=== PATIENT | female | born 1950 | race Caucasian/White ===

== ENCOUNTER → 2017-02-18 | Outpatient (CLI) | payer BC ==
[~2017-02-18] MED LIST: AGM875 PO; CLB100 PO; SYNTHROID
[2017-02-18 17:47] LABS: BASO % 0.5 %; BASO ABS # 0.02 K/uL (0-0.2); COMPLETE YES; EOS % 6.1 %; HEMATOCRIT 42.3 % (37-47); IG% 0.2 %; LYMPH % 41.1 %; LYMPH ABS # 1.75 K/uL (1.2-3.4); MEAN CELL VOLUME 94.8 fL (80-100); MEAN CORPUSCULAR HEMOGLOBIN 31.8 pg (25-34); MEAN CORPUSCULAR HGB CONC 33.6 g/dl (32-36); MEAN PLATELET VOLUME 10.3 fL (7.4-10.4); MONO % 9.4 %; NEUT % 42.7 %; PLATELET COUNT 208 K/uL (130-400); RED BLOOD COUNT 4.46 M/uL (4.2-5.4); WHITE BLOOD COUNT 4.26 K/uL (4.8-10.8)
[2017-02-18 17:56] LABS: ALT/SGPT 29 U/L (12-78); BLOOD UREA NITROGEN 18 mg/dl (7-18); CALCIUM 9.2 mg/dl (8.5-10.1); CARBON DIOXIDE 28 mmol/L (21-32); CHLORIDE 104 mmol/L (98-107); CREATININE 0.75 mg/dl (0.60-1.20); GLUCOSE 85 mg/dl (70-99); POTASSIUM 4.4 mmol/L (3.5-5.1); SODIUM 140 mmol/L (136-145)
[2017-02-18 18:05] LABS: ALB/GLOB RATIO 1.3 (0.9-2); ALKALINE PHOSPHATASE 60 U/L (45-117); AST/SGOT 23 U/L (15-37); TOTAL IRON BINDING CAPACITY 305 mcg/dl (250-450)
[2017-02-18 18:26] LABS: LYME DISEASE AB IGM NEG (NEG)
[2017-02-18 18:27] LABS: LYME DISEASE AB IGG NEG (NEG)
[2017-02-19 07:20] LABS: ESTIMATED AVERAGE GLUCOSE 111 mg/dl; HA1C FLAG Normal (Normal)
--- NOTE | 2017-03-03 10:51 | CODING QUERY MEDICAL NECESSITY ---
CQSUPPORTING DIAGNOSIS NEEDED A supporting diagnosis is required for the test/procedure performed on this patient in order for us to be reimbursed by the patient's insurance. Please provide a supporting diagnosis for the following test/procedure listed below next to the test name along with your signature. *If there is no additional diagnosis for this patient that would support the following test/procedure please document that below next to the test/procedure. Test(s)/Procedure(s) that require a supporting diagnosis: DOS 02/18/17 GLYCATED HEMOGLOBIN TEST VITAMIN D TEST SERUM IRON STUDY Provider Signature: Date: Thank you Ciarra Lewis Health Information Management Once completed, please kindly fax back to [phone] For questions please call [phone]
== END | disposition home or self-care (01) ==
LOC: C.LABPVFM 13:39
PROVIDERS: ATTEND Nurse Practitioner
DX: R53.83 Other fatigue (principal)

== ENCOUNTER → 2017-04-22 | Outpatient (CLI) | payer BC ==
--- NOTE | 2017-04-22 17:16 | MAMMOGRAPHY REPORT ---
BILATERAL DIGITAL SCREENING MAMMOGRAM TOMOSYNTHESIS WITH CAD: 04/22/2017 CLINICAL HISTORY: Routine screening. Patient has no complaints. TECHNIQUE: Breast tomosynthesis in addition to standard 2D mammography was performed. Current study was also evaluated with a Computer Aided Detection (CAD) system. COMPARISON: Comparison is made to exams dated: 04/21/2016 mammogram, 04/17/2015 mammogram, 04/13/2014 jennie mogram, 04/21/2013 mammogram, 03/31/2013 mammogram, and 03/30/2012 mammogram - [facility]. BREAST COMPOSITION: The tissue of both breasts is heterogeneously dense, which may obscure small mas ses. FINDINGS: A linear scar marker overlies the right upper outer quadrant. There is stable focal asymme try in the upper outer middle and posterior right breast. Stable bilateral benign-appearing calcific ations. No new suspicious mass, architectural distortion or cluster of microcalcifications is seen. IMPRESSION: ACR BI-RADS CATEGORY 1: NEGATIVE There is no mammographic evidence of malignancy. A 1 year screening mammogram is recommended. The pa tient will receive written notification of the results. Approximately 10% of breast cancers are not detected with mammography. A negative mammographic report should not delay biopsy if a clinically suggestive mass is present. Khushboo Correia M.D. ay/:04/22/2017 15:38:52 Retail Advertising Sales Manager: Yamila Miller, [facility] letter sent: Normal 1/2 BI-RADS Code: ACR BI-RADS Category 1: Negative
== END | disposition home or self-care (01) ==
LOC: C.MAMM 12:45
PROVIDERS: ATTEND Nurse Practitioner
DX: Z12.31 Encounter for screening mammogram for malignant neoplasm of breast (principal)

== ENCOUNTER 2017-11-07 12:54 | Emergency (ER) | payer BC ==
[~2017-11-07] VITALS: Ht 170.2 cm; Wt 50.4 kg
[2017-11-07 13:02] VITALS: TEMP 37.4; Ht 170.2 cm; Wt 50.4 kg
[2017-11-07] MEDS ORDERED: ALBUT/IPRATROP 3MG/0.5MG NEB 3 ML VIAL INH STA (13:34)
--- NOTE | 2017-11-07 13:35 | EMERGENCY ROOM VISIT NOTE ---
History Report prepared by Gila: Yeni Boyd Under the Supervision of: Dr. Troy Navarro M.D. First contact with patient: 13:17 Chief Complaint: WEAKNESS Stated Complaint: SICK FOR MONTHS- WEAK, INFECTION Nursing Triage Summary: pt reports started months ago sick from people at work with flu like sx placed on meds and made sx worse has been intermittently on antibiotics since . pt rambling on about past 3 months unable to tell me what is wrong today. has cough and does not want meds dr put her on History of Present Illness The patient is a 67 year old female who presents to the Emergency Room with complaints of worsening weakness for the past 3 months. She reports that she developed flu symptoms several months ago, and saw Dr. Menendez at [facility], who prescribed her Levaquin. She states the medications made her feel "weak and run down". She told [facility] medical staff the medicine was making her "sicker", but she had blood work that came back unremarkable. The patient was then placed on steroids and began to improve. She developed flu symptoms again, and was placed on the same medication by Dr. Menendez again. The patient states she last took one of the pills this past Thursday, 4 days HERBICIDE SPRAYER, and has been "unable to get out of bed since then". She admits to a cough and is a former smoker, but states she quit 35 years ago. She denies any abdominal pain. She states she has been drinking lots of water and eating normally. Source of History: patient Onset: 3 months HERBICIDE SPRAYER Position: other (global) Timing: worsening Modifying Factors (Worsening): other (Levaquin) Associated Symptoms: + cough, No abdominal pain Review of Systems See HPI for pertinent positives & negatives. A total of 10 systems reviewed and were otherwise negative. Past Medical & Surgical Medical Problems: (1) Hypothyroidism Social History Smoking Status: Current Every Day Smoker Alcohol Use: none Drug Use: none Marital Status: Housing Status: lives with family Occupation Status: employed Current/Historical Medications Scheduled Ascorbic Acid (Ascorbic Acid), 1 TAB PO DAILY Azithromycin (Zithromax Z-Luke), 1 PKT PO UD Calcium Carbonate (Calcium 600), 1 TAB PO DAILY Celecoxib (Celebrex), 1 CAP PO BID Cholecalciferol (D-5000), 1 TAB PO DAILY Fluticasone Furoate-Vilanterol (Breo Ellipta), 1 PUFF INH HS Levothyroxine Sodium (Levothyroxine Sodium), 1 TAB PO DAILY Potassium Gluconate (K-99), 1 CAP PO DAILY Prednisone (Prednisone), 0 PO DAILY Allergies Uncoded Allergies: ANESTHETIC (Allergy, Unknown, 10/22/03) HORSE SERUM (Allergy, Unknown, 10/22/03) Physical Exam Vital Signs Date Time Temp Pulse Resp B/P (MAP) Pulse Ox O2 Delivery O2 Flow Rate FiO2 11/07/17 14:53 93 18 131/79 96 Room Air 11/07/17 14:26 88 18 126/73 97 Room Air 11/07/17 13:02 37.4 110 18 133/85 96 Room Air Physical Exam GENERAL: Patient is well appearing, slightly anxious and in no acute distress. EYES: No scleral icterus, unremarkable pupils. ENT: Mucous membranes moist, no nasal congestion. NECK: No masses appreciated, no meningismus, trachea is midline. RESPIRATORY: No dyspnea. Course lung sounds with wheezing throughout. No rhonchi. CARDIOVASCULAR: Mildly tachycardic heart rate, regular rhythm. No murmurs, rubs , gallops appreciated. GASTROINTESTINAL: Abdomen soft, nontender, no peritonitis. Bowel sounds positive. No masses appreciated. BACK: No midline tenderness, no CVA tenderness EXTREMITIES: Normal motion all extremities, no cyanosis, no edema. NEUROLOGIC: Alert and oriented, no acute motor or sensory deficits, no focal weakness, cranial nerves grossly intact. SKIN: No rash, no jaundice, no diaphoresis. Medical Decision & Procedures ER Provider Diagnostic Interpretation: Radiology results and stated below per my review and radiologist interpretation: TWO VIEW CHEST CLINICAL HISTORY: Cough and wheezing. FINDINGS: PA and lateral chest radiographs are compared to study dated 05/06/2011. The cardiomediastinal silhouette is unremarkable. There is atherosclerotic calcification of the thoracic aorta. Emphysematous change is noted and there is chronic interstitial thickening. No airspace consolidation or pleural effusion is identified. There is no pneumothorax. The skeletal structures are osteopenic. The bony thorax appears intact. Degenerative change and scoliosis are noted in the thoracic spine. IMPRESSION: Emphysematous change with no active disease in the chest. Electronically signed by: Loyd Dallas M.D. 11/07/2017 2:23 PM Laboratory Results 11/07/17 13:30 Red Blood Count 4.44, Mean Corpuscular Volume 93.5, Mean Corpuscular Hemoglobin 32.2, Mean Corpuscular Hemoglobin Concent 34.5, Mean Platelet Volume 9.9, Neutrophils (%) (Auto) 66.3, Lymphocytes (%) (Auto) 16.0, Monocytes (%) (Auto) 16.0, Eosinophils (%) (Auto) 1.2, Basophils (%) (Auto) 0.5, Neutrophils # (Auto ) 2.68, Lymphocytes # (Auto) 0.65, Monocytes # (Auto) 0.65, Eosinophils # (Auto ) 0.05, Basophils # (Auto) 0.02 11/07/17 13:30 Test 11/07/17 13:30 White Blood Count 4.05 K/uL (4.8-10.8) Red Blood Count 4.44 M/uL (4.2-5.4) Hemoglobin 14.3 g/dL (12.0-16.0) Hematocrit 41.5 % (37-47) Mean Corpuscular Volume 93.5 fL (80-100) Mean Corpuscular Hemoglobin 32.2 pg (25-34) Mean Corpuscular Hemoglobin Concent 34.5 g/dl (32-36) Platelet Count 150 K/uL (130-400) Mean Platelet Volume 9.9 fL (7.4-10.4) Neutrophils (%) (Auto) 66.3 % Lymphocytes (%) (Auto) 16.0 % Monocytes (%) (Auto) 16.0 % Eosinophils (%) (Auto) 1.2 % Basophils (%) (Auto) 0.5 % Neutrophils # (Auto) 2.68 K/uL (1.4-6.5) Lymphocytes # (Auto) 0.65 K/uL (1.2-3.4) Monocytes # (Auto) 0.65 K/uL (0.11-0.59) Eosinophils # (Auto) 0.05 K/uL (0-0.5) Basophils # (Auto) 0.02 K/uL (0-0.2) RDW Standard Deviation 47.0 fL (36.4-46.3) RDW Coefficient of Variation 13.6 % (11.5-14.5) Immature Granulocyte % (Auto) 0.0 % Immature Granulocyte # (Auto) 0.00 K/uL (0.00-0.02) Anion Gap 4.0 mmol/L (3-11) Est Creatinine Clear Calc Drug Dose 61.1 ml/min Estimated GFR () 100.2 Estimated GFR (Non- 86.4 BUN/Creatinine Ratio 17.6 (10-20) Calcium Level 8.6 mg/dl (8.5-10.1) Total Bilirubin 0.3 mg/dl (0.2-1) Aspartate Amino Transf (AST/SGOT) 21 U/L (15-37) Alanine Aminotransferase (ALT/SGPT) 20 U/L (12-78) Alkaline Phosphatase 64 U/L (45-117) Total Protein 6.8 gm/dl (6.4-8.2) Albumin 3.7 gm/dl (3.4-5.0) Globulin 3.1 gm/dl (2.5-4.0) Albumin/Globulin Ratio 1.2 (0.9-2) Laboratory results as reviewed by me. Medications Administered Medications (Trade) Dose Ordered Sig/Agatha Route Start Time Stop Time Status Last Admin Dose Admin Albuterol/ Ipratropium (Duoneb) 3 ml NOW STAT INH 11/07/17 13:34 11/07/17 13:35 DC 11/07/17 13:48 3 ML Albuterol (Ventolin Hfa Inhaler) 2 puffs NOW ONCE INH 11/07/17 14:45 11/07/17 14:46 DC 11/07/17 14:51 2 PUFFS Prednisone (PredniSONE TAB) 60 mg NOW STAT PO 11/07/17 14:43 11/07/17 14:45 DC 11/07/17 14:51 60 MG Azithromycin (Zithromax Tab) 500 mg NOW ONCE PO 11/07/17 14:45 11/07/17 14:46 DC 11/07/17 14:51 500 MG ECG Per My Interpretation Indication: SOB/dyspnea Rate (beats per minute): 94 Rhythm: normal sinus Findings: no acute ischemic change, no ectopy Change: EKG: Electrocardiogram per my interpretation. ED Course 1318: The patient was evaluated in room B5. A complete history and physical exam was performed. 1334: DuoNeb 3 ml INH. 1443: Prednisone 60 mg PO. 1443: I reevaluated the patient. She is feeling well and would like to go home. She will follow up with Pulmonology. She has had complete resolution of symptoms. She will use an inhaler and take Prednisone. I advised smoking cessation any my concerns for her emphysema. She verbalized complete understanding and agreement. 1445: Azithromycin 500 mg PO, Albuterol 2 puffs INH. Medical Decision Differential: Infectious, Reactive Airway Disease, Pneumonia, Pneumothorax, COPD , CHF, ACS, Pulmonary Embolism, MSK, GI, Dissection, amongst other etiologies entertained. 67 yr old female arrives for evaluation of cough, fatigue and shortness of breath. 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 Labs unremarkable. No symptoms of ACS and symptoms not consistent with PE. She has emphysema noted on CXR consistent with her exam. Wheezing resolved with neb. I feel this is bronchitis and should improve with abx/steroids/inhaler. Prolonged steroid taper as she has been dealing with this for some time. Already has been on Doxy/Levaquin with poor result thus will switch to Zpack. She feels comfortable going home and agrees to follow up with PCP. Suggest Pulm evaluation as outpatient. Medication Reconcilliation Current Medication List: was personally reviewed by me Blood Pressure Screening Patient's blood pressure: Normal blood pressure Blood pressure disposition: Did not require urgent referral Impression Primary Impression: Bronchitis Additional Impressions: Fatigue Emphysema lung Scribe Attestation The scribe's documentation has been prepared under my direction and personally reviewed by me in its entirety. I confirm that the note above accurately reflects all work, treatment, procedures, and medical decision making performed by me. Departure Information Dispostion Home / Self-Care Prescriptions Azithromycin (ZITHROMAX Z-LUKE) 250 Mg Tab 1 PKT PO UD, #1 PKT Patient requests no medications made by DR MENENDEZ'S Prov: Troy Navarro M.D. 11/07/17 Prednisone (Prednisone) 20 Mg Tab 0 PO DAILY, #17 TAB 3 TABS DAILY FOR 2 DAYS, THEN 2 TABS DAILY FOR 3 DAYS, THEN 1 TAB DAILY FOR 3 DAYS, THEN 1/2 TAB DAILY FOR 3 DAYS. Prov: Troy Navarro M.D. 11/07/17 Referrals No Doctor, Assigned (PCP) Patient Instructions My [facility] Additional Instructions Rest, keep well hydrated and avoid over exertion over the next few days. Return if worsening breathing, fevers, vomiting, chest pain or other concerns. Avoid NSAID (motrin, ibuprofen, Celebrex, etc) Use while on Prednisone. We are always here to help. Please discuss with your Pharmacy about where medications are from. It is advised you follow up with Consulting Sales Executive for further evaluation of your Emphysema. It is highly advised you stop smoking now. Problem Qualifiers
[2017-11-07] MEDS ORDERED: CLB100 PO (13:45)
[2017-11-07] MEDS ORDERED: POTACAP PO (13:45)
[2017-11-07] MEDS ORDERED: ASCO100061 PO (13:45)
[2017-11-07] MEDS ORDERED: CALC600T PO (13:45)
[2017-11-07] MEDS ORDERED: LEVO75TA5 PO (13:45)
[2017-11-07] MEDS ORDERED: LEVO1TAB35 PO (13:45)
[2017-11-07] MEDS ORDERED: FLUT1INH INH (13:45)
[2017-11-07] MEDS ORDERED: CHOLTAB11 PO (13:45)
[2017-11-07 14:06] LABS: BASO % 0.5 %; BASO ABS # 0.02 K/uL (0-0.2); EOS % 1.2 %; EOS ABS # 0.05 K/uL (0-0.5); HEMATOCRIT 41.5 % (37-47); HEMOGLOBIN 14.3 g/dL (12.0-16.0); LYMPH ABS # 0.65 K/uL (1.2-3.4); MEAN CELL VOLUME 93.5 fL (80-100); MEAN CORPUSCULAR HEMOGLOBIN 32.2 pg (25-34); MEAN CORPUSCULAR HGB CONC 34.5 g/dl (32-36); MEAN PLATELET VOLUME 9.9 fL (7.4-10.4); MONO ABS # 0.65 K/uL (0.11-0.59); NEUT % 66.3 %; NEUT ABS # 2.68 K/uL (1.4-6.5); PLATELET COUNT 150 K/uL (130-400); RED CELL DISTRIBUTION WIDTH CV 13.6 % (11.5-14.5); WHITE BLOOD COUNT 4.05 K/uL (4.8-10.8)
[2017-11-07 14:19] LABS: ALBUMIN 3.7 gm/dl (3.4-5.0); CALCIUM 8.6 mg/dl (8.5-10.1); CREATININE 0.73 mg/dl (0.60-1.20); POTASSIUM 3.8 mmol/L (3.5-5.1)
[2017-11-07 14:22] LABS: TOTAL PROTEIN 6.8 gm/dl (6.4-8.2)
--- NOTE | 2017-11-07 14:24 | DIAGNOSTIC IMAGING REPORT ---
TWO VIEW CHEST CLINICAL HISTORY: Cough and wheezing. FINDINGS: PA and lateral chest radiographs are compared to study dated 05/06/2011. The cardiomediastinal silhouette is unremarkable. There is atherosclerotic calcification of the thoracic aorta. Emphysematous change is noted and there is chronic interstitial thickening. No airspace consolidation or pleural effusion is identified. There is no pneumothorax. The skeletal structures are osteopenic. The bony thorax appears intact. Degenerative change and scoliosis are noted in the thoracic spine. IMPRESSION: Emphysematous change with no active disease in the chest. Electronically signed by: Loyd Dallas M.D. 11/07/2017 2:23 PM Dictated Date/Time: 11/07/2017 2:21 PM
[2017-11-07] MEDS ORDERED: ALBUTEROL HFA 8 GM INHALER INH ONE (14:45)
[2017-11-07] MEDS ORDERED: AZITHROMYCIN 250 MG TAB PO ONE (14:45)
[2017-11-07] MEDS ORDERED: AZITTAB PO ×2 (14:48→14:49)
[2017-11-07] MEDS ORDERED: PRED20TA PO (14:48)
[2017-11-07 14:53] VITALS: BP 131/79; PULSE 93; O2SAT 96
== END 2017-11-07 15:02 | disposition home or self-care (01) ==
LOC: C.EDB 12:55
DX: J40 Bronchitis, not specified as acute or chronic (principal); R53.83 Other fatigue; J43.9 Emphysema, unspecified; E03.9 Hypothyroidism, unspecified; Z79.899 Other long term (current) drug therapy; Z88.4 Allergy status to anesthetic agent; Z88.7 Allergy status to serum and vaccine; F17.200 Nicotine dependence, unspecified, uncomplicated

== ENCOUNTER 2017-11-09 15:02 | Emergency (ER) | payer BC ==
[~2017-11-09] VITALS: Ht 167.6 cm; Wt 50.3 kg
[~2017-11-09 15:02] MED LIST changes: -AGM875 PO; +ASCO100061 PO; +AZITTAB PO; +CALC600T PO; +CHOLTAB11 PO; +FLUT1INH INH; +LEVO75TA5 PO; +POTACAP PO; +PRED20TA PO; -SYNTHROID
[2017-11-09 15:19] VITALS: BP 121/81; Ht 167.6 cm; Wt 50.3 kg
[2017-11-09] MEDS ORDERED: SODIUM CHLORIDE 0.9% 500ML 500 ML IV STA ×2 (15:39→16:56)
[2017-11-09] MEDS ORDERED: ALBUT/IPRATROP 3MG/0.5MG NEB 3 ML VIAL INH STA (15:39)
--- NOTE | 2017-11-09 15:56 | DIAGNOSTIC IMAGING REPORT ---
CHEST ONE VIEW PORTABLE CLINICAL HISTORY: Cough. COMPARISON STUDY: Chest radiograph November 07, 2017. FINDINGS: No pneumothorax or pleural effusion is noted. There is no consolidation or evidence for pulmonary edema. Cardiac size is normal. Mediastinal contours are normal. IMPRESSION: No acute cardiopulmonary findings. Electronically signed by: Joe Chatterjee M.D. 11/09/2017 3:55 PM Dictated Date/Time: 11/09/2017 3:54 PM
[2017-11-09 16:31] LABS: HEMATOCRIT 41.6 % (37-47); HEMOGLOBIN 14.4 g/dL (12.0-16.0); IG# 0.01 K/uL (0.00-0.02); LYMPH ABS # 0.37 K/uL (1.2-3.4); MEAN CELL VOLUME 92.9 fL (80-100); MEAN CORPUSCULAR HEMOGLOBIN 32.1 pg (25-34); MEAN CORPUSCULAR HGB CONC 34.6 g/dl (32-36); MEAN PLATELET VOLUME 10.2 fL (7.4-10.4); MONO % 5.4 %; MONO ABS # 0.18 K/uL (0.11-0.59); NEUT % 83.3 %; PLATELET COUNT 142 K/uL (130-400); RED CELL DISTRIBUTION WIDTH CV 13.6 % (11.5-14.5); RED CELL DISTRIBUTION WIDTH SD 46.6 fL (36.4-46.3); WHITE BLOOD COUNT 3.36 K/uL (4.8-10.8)
[2017-11-09] MEDS ORDERED: AZIT-60 PO (16:39)
[2017-11-09 16:41] LABS: ALBUMIN 3.8 gm/dl (3.4-5.0); BLOOD UREA NITROGEN 14 mg/dl (7-18); CALCIUM 8.6 mg/dl (8.5-10.1); CARBON DIOXIDE 26 mmol/L (21-32); GLUCOSE 109 mg/dl (70-99); POTASSIUM 3.9 mmol/L (3.5-5.1); PTT PATIENT 26.7 SECONDS (21.0-31.0); SODIUM 136 mmol/L (136-145)
[2017-11-09] MEDS ORDERED: AZITTAB PO (16:41)
[2017-11-09 16:48] LABS: INFLUENZA B ANTIGEN POS for Influ B (NEG)
[2017-11-09 16:58] LABS: ALKALINE PHOSPHATASE 65 U/L (45-117); ALT/SGPT 24 U/L (12-78); AST/SGOT 25 U/L (15-37); CREATININE 0.78 mg/dl (0.60-1.20); TOTAL PROTEIN 7.3 gm/dl (6.4-8.2)
[2017-11-09 17:31] VITALS: PULSE 89; O2SAT 98
--- NOTE | 2017-11-09 17:52 | EMERGENCY ROOM VISIT NOTE ---
History First contact with patient: 15:24 Chief Complaint: FLU LIKE SX Stated Complaint: SORE THROAT, EAR AND SINUS PAIN, WEAK, DIARRHEA History of Present Illness The patient is a 67 year old female who presents to the Emergency Room via private vehicle with complaints of "sore throat, ear and sinus pain, weak, diarrhea". The patient states that she is here today because she now has worsening sore throat, ear and sinus pain, feels weak and has diarrhea. She states this all started back in August when she had the flu. She was sick for a few weeks. She has intermittently gone to [facility]. She received antibiotics. She notes that she felt worse. She did not get any better. She felt foggy. She states that sometimes she would feel better and then she would become weak and tired. She had inability to function. She states that she had blood work performed and it was "all right". She states that she feels as though she has a head cold as well as in the lungs. She was on steroids and antibiotics for period of time that seemed to work but now she is ill again. She states that 3 weeks ago she began with cough, yellow mucus production and was seen here a few days ago and given azithromycin. She states that her throat is now sore and she feels weak. She has diarrhea which began today. Review of Systems A complete 10-point Review of Systems was discussed with the patient, with pertinent positives and negatives listed in the History of Present Illness. All remaining Review of Systems questions can be considered negative unless otherwise specified. Past Medical/Surgical History Medical Problems: (1) Hypothyroidism Social History Smoking Status: Current Every Day Smoker Alcohol Use: none Drug Use: none Marital Status: Housing Status: lives with family Occupation Status: employed Current/Historical Medications Scheduled Ascorbic Acid (Ascorbic Acid), 1,000 MG PO DAILY Azithromycin (Zithromax Z-Luke), 1 PKT PO UD Azithromycin (Zithromax Z-Luke), 1 PKT PO UD Benzonatate (Tessalon Perles), 100 MG PO TID Calcium Carbonate (Calcium 600), 600 MG PO DAILY Celecoxib (Celebrex), 100 MG PO BID Cholecalciferol (D-5000), 5,000 UNITS PO DAILY Fluticasone Furoate-Vilanterol (Breo Ellipta), 1 PUFF INH HS Levothyroxine Sodium (Levothyroxine Sodium), 75 MCG PO DAILY Potassium Gluconate (K-99), 1 CAP PO DAILY Prednisone (Prednisone), 0 PO DAILY Physical Exam Vital Signs Date Time Temp Pulse Resp B/P (MAP) Pulse Ox O2 Delivery O2 Flow Rate FiO2 11/09/17 18:00 37.2 11/09/17 17:31 89 13 98 Room Air 11/09/17 16:31 88 11/09/17 15:19 37.1 93 20 121/81 95 Room Air Physical Exam VITAL SIGNS - Vital signs and nursing notes were reviewed. Stable. GENERAL -67-year-old female appearing her stated age who is in no acute distress. Communicates well with provider and answers questions appropriately. SKIN - Without rashes. No meningeal petechial rash. HEAD - NC/AT. EYES - PERRL with EOMI bilaterally. Sclera anicteric. EARS - No deformities of external structures noted on gross examination bilaterally. External auditory canals without discharge or otorrhea. Tympanic membranes pearly capellan without retraction or bulging. No fluid or purulent material visualized behind the TM. Handle of malleus, umbo, cone of light, pars tensa/flaccid all easily visualized. NOSE - Midline and without cyanosis. No epistaxis or purulent drainage noted. MOUTH/OROPHARYNX - Without perioral cyanosis. NECK - Neck with FROM. Supple to palpation. Minimal anterior cervical lymphadenopathy noted. No nuchal rigidity. LUNGS - Chest wall symmetric without accessory muscle use, intercostals retractions, or central cyanosis. Normal vesicular breath sounds CTA B/L. No wheezes, rales, or rhonchi appreciated. CARDIAC - RRR with S1/S2. No murmur, rubs, or gallops appreciated. EXTREMITIES - No clubbing or peripheral cyanosis. No pretibial edema present. +5 /5 strength noted in UE/LE bilaterally. NEUROLOGIC - Cranial nerves II through XII grossly intact. Sensory intact to light touch throughout. PSYCH - A&O, and cooperates fully with examiner. Pt is very pleasant and interacts well with examiner. Medical Decision & Procedures ER Provider Diagnostic Interpretation: CHEST ONE VIEW PORTABLE CLINICAL HISTORY: Cough. COMPARISON STUDY: Chest radiograph November 07, 2017. FINDINGS: No pneumothorax or pleural effusion is noted. There is no consolidation or evidence for pulmonary edema. Cardiac size is normal. Mediastinal contours are normal. IMPRESSION: No acute cardiopulmonary findings. Electronically signed by: Joe Chatterjee M.D. 11/09/2017 3:55 PM Dictated Date/Time: 11/09/2017 3:54 PM Laboratory Results 11/09/17 15:40 Red Blood Count 4.48, Mean Corpuscular Volume 92.9, Mean Corpuscular Hemoglobin 32.1, Mean Corpuscular Hemoglobin Concent 34.6, Mean Platelet Volume 10.2, Neutrophils (%) (Auto) 83.3, Lymphocytes (%) (Auto) 11.0, Monocytes (%) (Auto) 5.4, Eosinophils (%) (Auto) 0.0, Basophils (%) (Auto) 0.0, Neutrophils # (Auto) 2.80, Lymphocytes # (Auto) 0.37, Monocytes # (Auto) 0.18, Eosinophils # (Auto) 0.00, Basophils # (Auto) 0.00 11/09/17 15:40 Test 11/09/17 15:40 11/09/17 16:00 11/09/17 17:10 White Blood Count 3.36 K/uL (4.8-10.8) Red Blood Count 4.48 M/uL (4.2-5.4) Hemoglobin 14.4 g/dL (12.0-16.0) Hematocrit 41.6 % (37-47) Mean Corpuscular Volume 92.9 fL (80-100) Mean Corpuscular Hemoglobin 32.1 pg (25-34) Mean Corpuscular Hemoglobin Concent 34.6 g/dl (32-36) Platelet Count 142 K/uL (130-400) Mean Platelet Volume 10.2 fL (7.4-10.4) Neutrophils (%) (Auto) 83.3 % Lymphocytes (%) (Auto) 11.0 % Monocytes (%) (Auto) 5.4 % Eosinophils (%) (Auto) 0.0 % Basophils (%) (Auto) 0.0 % Neutrophils # (Auto) 2.80 K/uL (1.4-6.5) Lymphocytes # (Auto) 0.37 K/uL (1.2-3.4) Monocytes # (Auto) 0.18 K/uL (0.11-0.59) Eosinophils # (Auto) 0.00 K/uL (0-0.5) Basophils # (Auto) 0.00 K/uL (0-0.2) RDW Standard Deviation 46.6 fL (36.4-46.3) RDW Coefficient of Variation 13.6 % (11.5-14.5) Immature Granulocyte % (Auto) 0.3 % Immature Granulocyte # (Auto) 0.01 K/uL (0.00-0.02) Prothrombin Time 10.3 SECONDS (9.0-12.0) Prothromb Time International Ratio 1.0 (0.9-1.1) Activated Partial Thromboplast Time 26.7 SECONDS (21.0-31.0) Partial Thromboplastin Ratio 1.0 Anion Gap 9.0 mmol/L (3-11) Est Creatinine Clear Calc Drug Dose 57.1 ml/min Estimated GFR () 92.5 Estimated GFR (Non- 79.8 BUN/Creatinine Ratio 17.7 (10-20) Calcium Level 8.6 mg/dl (8.5-10.1) Total Bilirubin 0.4 mg/dl (0.2-1) Aspartate Amino Transf (AST/SGOT) 25 U/L (15-37) Alanine Aminotransferase (ALT/SGPT) 24 U/L (12-78) Alkaline Phosphatase 65 U/L (45-117) Troponin I < 0.015 ng/ml (0-0.045) Total Protein 7.3 gm/dl (6.4-8.2) Albumin 3.8 gm/dl (3.4-5.0) Globulin 3.5 gm/dl (2.5-4.0) Albumin/Globulin Ratio 1.1 (0.9-2) Influenza Type A Antigen Neg for Influ A (NEG) Influenza Type B Antigen POS for Influ B (NEG) Urine Color YELLOW Urine Appearance CLEAR (CLEAR) Urine pH 7.0 (4.5-7.5) Urine Specific [place] 1.006 (1.000-1.030) Urine Protein NEG (NEG) Urine Glucose (UA) NEG (NEG) Urine Ketones NEG (NEG) Urine Occult Blood NEG (NEG) Urine Nitrite NEG (NEG) Urine Bilirubin NEG (NEG) Urine Urobilinogen NEG (NEG) Urine Leukocyte Esterase NEG (NEG) Medications Administered Medications (Trade) Dose Ordered Sig/Agatha Route Start Time Stop Time Status Last Admin Dose Admin Albuterol/ Ipratropium (Duoneb) 3 ml NOW STAT INH 11/09/17 15:39 11/09/17 15:41 DC 11/09/17 16:05 3 ML Sodium Chloride 500 ml @ 999 mls/hr Q31M STAT IV 11/09/17 15:39 11/09/17 16:09 DC 11/09/17 16:05 999 MLS/HR Sodium Chloride 500 ml @ 999 mls/hr Q31M STAT IV 11/09/17 16:56 11/09/17 17:26 DC 11/09/17 17:28 999 MLS/HR Medical Decision Patient was seen and evaluated as above in room A4. Review was performed of nursing notes and vital signs. After obtaining a thorough history and physical examination the above work up was performed. Review was performed previous visit. She appears well on exam. She has symptoms of that of a viral illness such as the flu. Testing was focused around this. She was found to be flu positive. Decrease in white blood cell count 3.36. No significant anemia. Coags normal. Metabolic panel reveals no evidence of kidney or emergent liver failure. Troponin negative. Urine is negative. Chest x-ray was obtained and found to be negative for acute process. EKG reveals normal sinus rhythm per my interpretation at a rate of 88 bpm. No ectopy or ischemic change. I do not believe that Tamiflu at this time is warranted. She was given 1 L of fluid total. She appears stable for outpatient management for close follow-up with the family doctor. She is to return with worsening. The patient was educated upon management, had questions answered prior to discharge, and was discharged home in good condition. In the evaluation and treatment of this patient the following differential diagnoses were entertained: Pneumonia, pharyngitis, influenza, IL, PE, among others. Impression Primary Impression: Influenza-like symptoms Departure Information Dispostion Home / Self-Care Condition GOOD Prescriptions Benzonatate (Tessalon Perles) 100 Mg Cap 100 MG PO TID for 5 Days, #15 CAP Prov: Satya Durand PA-C 11/09/17 Referrals No Doctor, Assigned (PCP) Patient Instructions My [facility] Additional Instructions You were seen in the emergency department for flulike symptoms. Your tests for influenza was positive. Please rest and stay well-hydrated. You may use your inhaler. I have also prescribed Tessalon Perles one Perle every 8 hours as needed for cough. Please call a family doctor to schedule follow-up. Alternating Tylenol/ibuprofen according to the directions as recommended to control symptoms and fever. Please return with any new/concerning symptoms.
[2017-11-09] MEDS ORDERED: BENZ100C84 PO (17:53)
[2017-11-09 18:00] VITALS: TEMP 37.2
== END 2017-11-09 18:11 | disposition home or self-care (01) ==
LOC: C.EDB 15:03 → C.EDA 18:11
DX: R68.89 Other general symptoms and signs (principal); E03.9 Hypothyroidism, unspecified; F17.200 Nicotine dependence, unspecified, uncomplicated

== ENCOUNTER 2021-03-10 03:02 | Inpatient (IN) ==
[2021-03-10] MEDS ORDERED: fentaNYL citrate 100 MCG/2 ML VIAL IV ONE (03:17)
[2021-03-10 03:36] LABS: Basophils # (auto) 0.02 K/uL (0-0.2); Basophils % (auto) 0.2 %; Eosinophils # (auto) 0.07 K/uL (0-0.5); Eosinophils % (auto) 0.8 %; Hematocrit (blood only) 43.2 % (37-47); Hemoglobin 14.9 g/dL (12.0-16.0); Immature Granulocytes # (auto) 0.02 K/uL (0.00-0.02); Immature Granulocytes % (auto) 0.2 %; Lymphocytes # (auto) 1.64 K/uL (1.2-3.4); Lymphocytes % (auto) 19.3 %; Mean Corpuscular Hemoglobin 34.2 pg (25-34); Mean Corpuscular Hgb Conc 34.5 g/dL (32-36); Mean Corpuscular Volume 99.1 fL (80-100); Mean Platelet Volume 9.5 fL (7.4-10.4); Monocytes # (auto) 0.57 K/uL (0.11-0.59); Monocytes % (auto) 6.7 %; Neutrophils # (auto) 6.16 K/uL (1.4-6.5); Neutrophils % (auto) 72.8 %; Platelet Count 244 K/uL (130-400); RDW Coefficient of Variation 13.7 % (11.5-14.5); RDW Standard Deviation 49.8 fL (36.4-46.3); Red Blood Count 4.36 M/uL (4.2-5.4); White Blood Count 8.48 K/uL (4.8-10.8)
[2021-03-10 03:49] LABS: INR 1.1 (0.9-1.1); Partial Thromboplastin Ratio 0.9; Partial Thromboplastin Time 23.6 Seconds (21.0-31.0); Prothrombin Time 10.8 Seconds (9.0-12.0)
[2021-03-10 03:52] LABS: Albumin Level 3.6 gm/dl (3.4-5.0); BUN Creatinine Ratio 20.6 (10-20); Calcium 8.4 mg/dl (8.5-10.1); Creatinine Clr Calc Pharmacy 79.4 ml/min; Est GFR (African American) 103.9 ml/min; Est GFR (Non-African American) 89.7 ml/min; Potassium 3.7 mmol/L (3.5-5.1)
[2021-03-10 03:55] LABS: Bilirubin,Total 0.3 mg/dl (0.2-1); Globulin 3.7 gm/dl (2.5-4.0); Total Protein 7.3 gm/dl (6.4-8.2)
[2021-03-10 03:59] LABS: Appearance Urine Clear (Clear); Bacteria Urine Automated 4+ (Negative); Bilirubin Urine Negative (Negative); Blood Urine Trace (Negative); Color Urine Yellow; Glucose Urine UA Negative (Negative); Ketones Urine Negative (Negative); Leukocyte Esterase Urine 1+ (Negative); Nitrite Urine Positive (Negative); Protein Urine Negative (Negative); RBC Urine Automated 0-4 /hpf (0-4); Specific Gravity Urine 1.016 (1.000-1.030); Urobilinogen Urine Negative (Negative); pH Urine 5.5 (4.5-7.5)
[2021-03-10] MEDS ORDERED: cefTRIAXone SODIUM 1,000 MG/50 ML BAG IV STA (04:06)
--- NOTE | 2021-03-10 04:16 | Emergency Department Note ---
History of Present Illness General Chief complaint: Hip Pain Stated complaint: FALL W/ HIP PAIN Time Seen by Provider: 03/10/21 03:08 Source: patient Mode of arrival: EMS Limitations: intoxication History of Present Illness Maximum Pain Intensity: 10 This patient is a 71-year-old female who presents to the emergency department via EMS for evaluation of a fall and hip pain. Patient admits to alcohol use. She states that she drank about 1/2 of a fifth of liquor since 1:00 yesterday afternoon. She states that she was out on her porch when she tripped and fell, landing onto her left hip. She reports constant, sharp pain in the left hip and rates her discomfort an 8/10. Pain is worse with any attempted movements. She has not been able to walk. Patient denies striking her head or any other injuries. She denies prior injuries to the hip. Home Medications Medication Instructions Recorded Confirmed Type CALCIUM CARBONATE (CALCIUM 600) 600 mg PO DAILY #0 11/07/17 03/10/21 History CHOLECALCIFEROL (D-5000) 5,000 unit PO DAILY #0 11/07/17 03/10/21 History Celecoxib (Celebrex) 100 mg PO BID #0 11/07/17 03/10/21 History FLUTICASONE FUROATE-VILANTEROL 1 puff INHALATION HS #0 11/07/17 03/10/21 History (BREO ELLIPTA) LEVOTHYROXINE SODIUM 112 mcg PO DAILY #0 11/07/17 History Spiriva Respimat 2 puff INHALATION DAILY 03/10/21 03/10/21 History albuterol sulfate 2 puff INHALATION Q4H PRN 03/10/21 03/10/21 History albuterol sulfate mg 03/10/21 History sucralfate 1 gram tablet 1 g PO QID PRN 03/10/21 03/10/21 History Allergies Allergy/AdvReac Type Severity Reaction Status Date / Time ANESTHETIC Allergy Unknown Uncoded 10/22/03 00:48 HORSE SERUM Allergy Unknown Uncoded 10/22/03 00:48 DR MENENDEZ'S MEDICATIONS AdvReac Intermediate N/V/D Uncoded 11/09/17 16:54 Past Med/Surg History Medical History Hypothyroidism Social History Smoking Status: Current every day smoker Tobacco Type: Cigarettes Cigarettes Per Day: 20; Second Hand Exposure: Yes; Tobacco Cessation Education Requested by Patient: No Hx Alcohol Use: Yes Alcohol type: hard liquor Hx Substance Use: No Preferred Language: Luxembourger Communication Ability: Effective Soda Maker Required: No Beliefs That Will Affect Care: None Current Living Situation: Alone Other Information That Helps Us Care for You: No Feels Safe at Home: Yes Safety Concerns: Feels Safe At This Time Assistive Devices: Glasses Review of Systems A total of 10 systems reviewed and were otherwise negative Physical Exam Vital Signs Vital Signs - 24 hr 03/10/21 03:18 Temperature 36.8 C Temperature Source Oral Blood Pressure 147/117 H Blood Pressure Mean 127 Blood Pressure Position Lying Sepsis Recent Fever Within 48 Hours No Sepsis New/Unexplained Change in Mental Status N/A Sepsis Action Taken by Nursing No Action Required VITALS: Vitals are noted on the nurse's note and reviewed by myself. GENERAL: This is a 71-year-old female, tearful, yelling, appears to be intoxicated. SKIN: The skin was without lacerations, erythema, edema, or bruising. HEAD: Normocephalic atraumatic. EARS: External auditory canals clear, tympanic membranes pearly capellan without erythema or effusion bilaterally. No hemotympanum. EYES: Pupils equal round and reactive to light and accommodation. Extraocular movements intact. MOUTH: Mucous membranes slightly dry. NECK: Supple without nuchal rigidity. Cervical spine is nontender. HEART: Regular rate and rhythm without murmurs gallops or rubs. LUNGS: Clear to auscultation bilaterally without wheezes, rales or rhonchi. ABDOMEN: Positive bowel sounds x 4. Soft, nontender to palpation. No guarding or rebound tenderness. MUSCULOSKELETAL: The left leg is shortened compared to the right. There is tenderness to palpation of the lateral and anterior left hip. Dorsalis pedis pulse 2+. NEURO: Patient was alert and oriented, but does appear to be intoxicated. Distal sensation is intact. Course Consultations Consultation #1: Dr. Kwame Manuel [facility] hospitalist Administered Medications Discontinued Medications Fentanyl Citrate (Fentanyl Citrate 100 Mcg/2 Ml Vial) 50 mcg IV NOW ONE Stop: 03/10/21 03:18 Last Admin: 03/10/21 03:27 Dose: 50 mcg Documented by: [id number] Fentanyl Citrate (Fentanyl Citrate 100 Mcg/2 Ml Vial) 50 mcg IV NOW STA Stop: 03/10/21 05:41 Last Admin: 03/10/21 05:48 Dose: 50 mcg Documented by: [id number] Ceftriaxone Sodium (Rocephin) 1,000 mg in 50 mls @ 100 mls/hr IV NOW STA Stop: 03/10/21 04:35 Last Infusion: 03/10/21 05:37 Dose: 0 mls/hr Documented by: [id number] Admin: 03/10/21 04:35 Dose: 100 mls/hr Documented by: [id number] Calcium Gluconate () 1,000 mg in 60 mls @ 240 mls/hr IV ONE STA Stop: 03/10/21 05:06 Last Infusion: 03/10/21 07:19 Dose: 0 mls/hr Documented by: [id number] Admin: 03/10/21 05:22 Dose: 240 mls/hr Documented by: [id number] Multivitamins 10 ml/ Thiamine HCl 100 mg/ Folic Acid 1 mg/Sodium Chloride 1,011.2 mls @ 500 mls/hr IV .Q2H2M ONE Stop: 03/10/21 06:50 Last Admin: 03/10/21 07:19 Dose: Not Given Documented by: [id number] Thiamine HCl 100 mg/ Syringe 10 mls @ 2 mls/min IV NOW STA Stop: 03/10/21 04:57 Last Admin: 03/10/21 05:22 Dose: 2 mls/min Documented by: [id number] Medical Decision Making Differential Diagnosis Fracture, dislocation, contusion, intra-abdominal, pneumothorax, intrathoracic, intracranial, neurologic, compartment syndrome, rhabdomyolysis, as well as other pathologies. Home Medications Current Medication List: was personally reviewed by me Laboratory Data Attestation: I reviewed the patient's lab results. Result diagrams: 03/10/21 03:24 03/10/21 03:24 Lab Results 03/10/21 03/10/21 03/10/21 Range/Units 03:24 03:24 03:24 WBC 8.48 (4.8-10.8) K/uL RBC 4.36 (4.2-5.4) M/uL Hgb 14.9 (12.0-16.0) g/dL Hct 43.2 (37-47) % MCV 99.1 (80-100) fL MCH 34.2 H (25-34) pg MCHC 34.5 (32-36) g/dL RDW Std Deviation 49.8 H (36.4-46.3) fL RDW Coeff of Nighat 13.7 (11.5-14.5) % Plt Count 244 (130-400) K/uL MPV 9.5 (7.4-10.4) fL Immature Gran % (Auto) 0.2 % Neut % (Auto) 72.8 % Lymph % (Auto) 19.3 % Kinney % (Auto) 6.7 % Eos % (Auto) 0.8 % Baso % (Auto) 0.2 % Neut # (Auto) 6.16 (1.4-6.5) K/uL Lymph # (Auto) 1.64 (1.2-3.4) K/uL Kinney # (Auto) 0.57 (0.11-0.59) K/uL Eos # (Auto) 0.07 (0-0.5) K/uL Baso # (Auto) 0.02 (0-0.2) K/uL Immature Gran # (Auto) 0.02 (0.00-0.02) K/uL PT 10.8 (9.0-12.0) Seconds INR 1.1 (0.9-1.1) APTT 23.6 (21.0-31.0) Seconds PTT Ratio 0.9 Sodium 139 (136-145) mmol/L Potassium 3.7 (3.5-5.1) mmol/L Chloride 108 H (98-107) mmol/L Carbon Dioxide 27 (21-32) mmol/L Anion Gap 4.0 (3-11) BUN 14 (7-18) mg/dl Creatinine 0.67 (0.6-1.2) mg/dl Est Cr Clr Drug Dosing 79.4 ml/min Est GFR ( Amer) 103.9 ml/min Est GFR (Non-Af Amer) 89.7 ml/min BUN/Creatinine Ratio 20.6 H (10-20) Glucose 128 H (70-99) mg/dl Calcium 8.4 L (8.5-10.1) mg/dl Magnesium 2.0 (1.8-2.4) mg/dl Total Bilirubin 0.3 (0.2-1) mg/dl AST 20 (15-37) U/L ALT 27 (12-78) U/L Alkaline Phosphatase 89 (45-117) U/L Total Protein 7.3 (6.4-8.2) gm/dl Albumin 3.6 (3.4-5.0) gm/dl Globulin 3.7 (2.5-4.0) gm/dl Albumin/Globulin Ratio 1.0 (0.9-2) Urine Color Urine Appearance (Clear) Urine pH (4.5-7.5) Ur Specific Molt (1.000-1.030) Urine Protein (Negative) Urine Glucose (UA) (Negative) Urine Ketones (Negative) Urine Blood (Negative) Urine Nitrite (Negative) Urine Bilirubin (Negative) Urine Urobilinogen (Negative) Ur Leukocyte Esterase (Negative) Urine WBC (Auto) (0-5) /hpf Urine RBC (Auto) (0-4) /hpf U Hyaline Cast (Auto) (0-5) /lpf U Epithel Cells (Auto) (0-5) /lpf Urine Bacteria (Auto) (Negative) Ethyl Alcohol mg/dL (0-3) mg/dl COVID-19 Eval Order SARS-CoV-2 (PCR) (Negative) Blood Type Antibody Screen 03/10/21 03/10/21 03/10/21 Range/Units 03:30 03:30 03:37 WBC (4.8-10.8) K/uL RBC (4.2-5.4) M/uL Hgb (12.0-16.0) g/dL Hct (37-47) % MCV (80-100) fL MCH (25-34) pg MCHC (32-36) g/dL RDW Std Deviation (36.4-46.3) fL RDW Coeff of Nighat (11.5-14.5) % Plt Count (130-400) K/uL MPV (7.4-10.4) fL Immature Gran % (Auto) % Neut % (Auto) % Lymph % (Auto) % Kinney % (Auto) % Eos % (Auto) % Baso % (Auto) % Neut # (Auto) (1.4-6.5) K/uL Lymph # (Auto) (1.2-3.4) K/uL Kinney # (Auto) (0.11-0.59) K/uL Eos # (Auto) (0-0.5) K/uL Baso # (Auto) (0-0.2) K/uL Immature Gran # (Auto) (0.00-0.02) K/uL PT (9.0-12.0) Seconds INR (0.9-1.1) APTT (21.0-31.0) Seconds PTT Ratio Sodium (136-145) mmol/L Potassium (3.5-5.1) mmol/L Chloride (98-107) mmol/L Carbon Dioxide (21-32) mmol/L Anion Gap (3-11) BUN (7-18) mg/dl Creatinine (0.6-1.2) mg/dl Est Cr Clr Drug Dosing ml/min Est GFR ( Amer) ml/min Est GFR (Non-Af Amer) ml/min BUN/Creatinine Ratio (10-20) Glucose (70-99) mg/dl Calcium (8.5-10.1) mg/dl Magnesium (1.8-2.4) mg/dl Total Bilirubin (0.2-1) mg/dl AST (15-37) U/L ALT (12-78) U/L Alkaline Phosphatase (45-117) U/L Total Protein (6.4-8.2) gm/dl Albumin (3.4-5.0) gm/dl Globulin (2.5-4.0) gm/dl Albumin/Globulin Ratio (0.9-2) Urine Color Urine Appearance (Clear) Urine pH (4.5-7.5) Ur Specific [place] (1.000-1.030) Urine Protein (Negative) Urine Glucose (UA) (Negative) Urine Ketones (Negative) Urine Blood (Negative) Urine Nitrite (Negative) Urine Bilirubin (Negative) Urine Urobilinogen (Negative) Ur Leukocyte Esterase (Negative) Urine WBC (Auto) (0-5) /hpf Urine RBC (Auto) (0-4) /hpf U Hyaline Cast (Auto) (0-5) /lpf U Epithel Cells (Auto) (0-5) /lpf Urine Bacteria (Auto) (Negative) Ethyl Alcohol mg/dL (0-3) mg/dl COVID-19 Eval Order Covid19 at [facility] SARS-CoV-2 (PCR) NEGATIVE (Negative) Blood Type A Positive Antibody Screen NEGATIVE 03/10/21 03/10/21 Range/Units 03:45 04:35 WBC (4.8-10.8) K/uL RBC (4.2-5.4) M/uL Hgb (12.0-16.0) g/dL Hct (37-47) % MCV (80-100) fL MCH (25-34) pg MCHC (32-36) g/dL RDW Std Deviation (36.4-46.3) fL RDW Coeff of Nighat (11.5-14.5) % Plt Count (130-400) K/uL MPV (7.4-10.4) fL Immature Gran % (Auto) % Neut % (Auto) % Lymph % (Auto) % Kinney % (Auto) % Eos % (Auto) % Baso % (Auto) % Neut # (Auto) (1.4-6.5) K/uL Lymph # (Auto) (1.2-3.4) K/uL Kinney # (Auto) (0.11-0.59) K/uL Eos # (Auto) (0-0.5) K/uL Baso # (Auto) (0-0.2) K/uL Immature Gran # (Auto) (0.00-0.02) K/uL PT (9.0-12.0) Seconds INR (0.9-1.1) APTT (21.0-31.0) Seconds PTT Ratio Sodium (136-145) mmol/L Potassium (3.5-5.1) mmol/L Chloride (98-107) mmol/L Carbon Dioxide (21-32) mmol/L Anion Gap (3-11) BUN (7-18) mg/dl Creatinine (0.6-1.2) mg/dl Est Cr Clr Drug Dosing ml/min Est GFR ( Amer) ml/min Est GFR (Non-Af Amer) ml/min BUN/Creatinine Ratio (10-20) Glucose (70-99) mg/dl Calcium (8.5-10.1) mg/dl Magnesium (1.8-2.4) mg/dl Total Bilirubin (0.2-1) mg/dl AST (15-37) U/L ALT (12-78) U/L Alkaline Phosphatase (45-117) U/L Total Protein (6.4-8.2) gm/dl Albumin (3.4-5.0) gm/dl Globulin (2.5-4.0) gm/dl Albumin/Globulin Ratio (0.9-2) Urine Color Yellow Urine Appearance Clear (Clear) Urine pH 5.5 (4.5-7.5) Ur Specific [place] 1.016 (1.000-1.030) Urine Protein Negative (Negative) Urine Glucose (UA) Negative (Negative) Urine Ketones Negative (Negative) Urine Blood Trace H (Negative) Urine Nitrite Positive A (Negative) Urine Bilirubin Negative (Negative) Urine Urobilinogen Negative (Negative) Ur Leukocyte Esterase 1+ H (Negative) Urine WBC (Auto) 5-10 H (0-5) /hpf Urine RBC (Auto) 0-4 (0-4) /hpf U Hyaline Cast (Auto) 1-5 (0-5) /lpf U Epithel Cells (Auto) 10-20 H (0-5) /lpf Urine Bacteria (Auto) 4+ H (Negative) Ethyl Alcohol mg/dL 91.0 H (0-3) mg/dl COVID-19 Eval Order SARS-CoV-2 (PCR) (Negative) Blood Type Antibody Screen Imaging Data Attestation: I personally reviewed and interpreted this imaging study as follows: My Impression: LEFT HIP: Comminuted, angulated fracture of the proximal femur Radiologist's Impression: Chest X-Ray 03/10/21 03:18 XR chest 1V portable HISTORY: 71 years-old Female hip fx acute chest trauma status post fall COMPARISON: Chest radiograph 11/09/2017 TECHNIQUE: Portable AP view of the chest FINDINGS: Cardiomediastinal and hilar silhouettes are within normal limits. Minimal linear subsegmental scarring/atelectasis of the left lung base. No pneumothorax, pleural effusion, airspace consolidation or overt pulmonary edema. Degenerative changes of the shoulders and spine. Dextroscoliosis of the upper thoracic spine. IMPRESSION: No acute process. ACT 112: Negative or not required by law. The above report was generated using voice recognition software. It may contain grammatical, syntax or spelling errors. Electronically signed by: Hema Grant M.D. 03/10/2021 7:[address] HEAD: No acute intracranial hemorrhage, hydrocephalus, edema, or mass effect. Paranasal sinuses and mastoid air cells are clear. Radiologist: Joe Ramsey MD ECG Data Attestation: I personally reviewed and interpreted this ECG as follows: Indication: + weakness Rate (beats per minute): 112 Rhythm: + sinus tachycardia ECG Intervals/blocks: + Normal QRS ECG ST segments: + Normal ST segments Change: no significant change MDM Narrative Continuous monitor car operator: Order was placed for continuous monitor car operator. Patient was placed on the monitor car operator. Patient was noted to be in sinus tachycardia at an initial rate of 110 bpm. The patient is a 71-year-old female who presents today for evaluation after a fall. Patient was drinking alcohol tonight. She was found to have a comminuted left hip fracture. She was also found to have a UTI and was given Rocephin for this. She was given fentanyl for pain. The case was discussed with the [facility] hospitalist, who agreed to evaluate the patient for further care. Impression & Plan Hip fracture, left, Alcohol intoxication, UTI (urinary tract infection) Discharge Plan Visit Data Chief Complaint: Hip Pain Stated Complaint: FALL W/ HIP PAIN ED Provider: Dali Edgar ED Midlevel Provider: Reba Disla Discharge Problem: Hip fracture, left, Alcohol intoxication, UTI (urinary tract infection) Patient Disposition: Admitted As Inpatient Discharge Instructions Interventions: ED Discharge Assessment Last Done: 03/10/21 06:13
[2021-03-10] MEDS ORDERED: MULTI-VITAMIN INFUSION 10 ML, THIAMINE HCL 100 MG, FOLIC ACID 1 MG in SODIUM CHLORIDE 0... IV ONE (04:49)
[2021-03-10] MEDS ORDERED: CALCIUM GLUCONATE 1,000 MG/60 ML BAG IV STA (04:52)
[2021-03-10] MEDS ORDERED: THIAMINE HCL 100 MG in SYRINGE 9 ML IV STA (04:53)
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
[2021-03-10] MEDS ORDERED: fentaNYL citrate 100 MCG/2 ML VIAL IV STA (05:40)
[2021-03-10] MEDS ORDERED: IPRATROPIUM BROMIDE NEB SOLN 0.02% 2.5 ML VIAL INH PRN (06:12)
[2021-03-10] MEDS ORDERED: PROMETHAZINE HCL 12.5 MG in SODIUM CHLORIDE 0.9% 50 ML IV PRN ×2 (06:12→12:07)
[2021-03-10] MEDS ORDERED: NALOXONE HCL 0.4 MG/1 ML VIAL/CARP IV PRN ×3 (06:12→14:09)
[2021-03-10] MEDS ORDERED: LEVALBUTEROL 1.25MG/0.5ML NEB INH PRN (06:12)
[2021-03-10] MEDS ORDERED: XOPENEX/ATROVENT 1.25mg/0.5MG NEB COMBO NEB PRN (06:12)
[2021-03-10] MEDS ORDERED: oxyCODONE HCL IR 5 MG TAB (IMMEDIATE RELEASE) PO PRN ×2 (06:12)
[2021-03-10] MEDS ORDERED: MAGNESIUM HYDROXIDE SUSP 30 ML UDC PO PRN (06:12)
[2021-03-10] MEDS ORDERED: LORazepam 0.5 MG/1 ML VIAL IV PRN (06:12)
[2021-03-10] MEDS ORDERED: MoRPHine SULFATE 4 MG/ML 1 ML CARP\\VIAL IV PRN (06:12)
[2021-03-10] MEDS ORDERED: cloNIDine HCL 0.1 MG TAB PO ONE (07:07)
[2021-03-10] MEDS ORDERED: LORazepam 2 MG/4 ML VIAL IV PRN (07:12)
[2021-03-10] MEDS ORDERED: LORazepam 1 MG/2 ML VIAL IV PRN (07:12)
[2021-03-10] MEDS ORDERED: LORazepam 3 MG/6 ML VIAL IV PRN (07:12)
[2021-03-10] MEDS ORDERED: ATIVAN IV ALCOHOL WITHDRAWL IV PRN (07:12)
--- NOTE | 2021-03-10 07:30 | XRay Report ---
XR chest 1V portable HISTORY: 71 years-old Female hip fx acute chest trauma status post fall COMPARISON: Chest radiograph 11/09/2017 TECHNIQUE: Portable AP view of the chest FINDINGS: Cardiomediastinal and hilar silhouettes are within normal limits. Minimal linear subsegmental scarrin g/atelectasis of the left lung base. No pneumothorax, pleural effusion, airspace consolidation or ove rt pulmonary edema. Degenerative changes of the shoulders and spine. Dextroscoliosis of the upper tho racic spine. IMPRESSION: No acute process. ACT 112: Negative or not required by law. The above report was generated using voice recognition software. It may contain grammatical, syntax o r spelling errors. Electronically signed by: Hema Grant M.D. 03/10/2021 7:29 AM
--- NOTE | 2021-03-10 07:38 | XRay Report ---
XR hip LT min 2V HISTORY: 71 years-old Female left hip injury acute left hip pain status post trauma COMPARISON: Pelvis radiograph 09/26/2020 TECHNIQUE: 2 views of the left hip FINDINGS: There is an acute intertrochanteric/subtrochanteric fracture of the proximal left femur which demonst rates apex lateral angulation with medial displacement of 1.5 cm. The lesser trochanteric fracture fr agment is displaced medially approximately 1.5 cm. Moderate soft tissue swelling lateral to the left hip. Mild left hip osteoarthritis. IMPRESSION: Acute mildly angulated and displaced fracture of the left proximal femur. ACT 112: Negative or not required by law. The above report was generated using voice recognition software. It may contain grammatical, syntax o r spelling errors. Electronically signed by: Hema Grant M.D. 03/10/2021 7:37 AM
--- NOTE | 2021-03-10 08:07 | CT Scan Report ---
CT head/brain wo con CLINICAL HISTORY: 71 years-old Female with fall. Acute head trauma status post fall TECHNIQUE: Multiple axial CT images of the head were obtained without contrast. A dose lowering tech nique was utilized adhering to the principles of ALARA. CT DOSE: 690.05 mGycm COMPARISON: None. FINDINGS: No acute intracranial hemorrhage, midline shift, intracranial mass, hydrocephalus, territorial ischem ia or abnormal extra-axial collection. Senescent calcifications of the lentiform nuclei. The calvarium is intact. The paranasal sinuses, mastoid air cells, and middle ear cavities are clear . IMPRESSION: No acute intracranial abnormality or calvarial fracture. ACT 112: Negative or not required by law. The above report was generated using voice recognition software. It may contain grammatical, syntax o r spelling errors. Electronically signed by: Hema Grant M.D. 03/10/2021 8:06 AM
[2021-03-10] MEDS: LEVOTHYROXINE SODIUM 112 MCG TABLET PO SCH (08:15)
[2021-03-10] MEDS: POTASSIUM CHLORIDE 40 MEQ in SODIUM CHLORIDE 0.9% 1000ML 1,000 ML IV SCH (09:01)
[2021-03-10] MEDS: KETOROLAC TROMETHAMINE 15 MG/ML VIAL IV PRN ×2 (09:35→18:35)
[2021-03-10] MEDS ORDERED: ceFAZolin 1000MG 1,000 MG/7.5 ML SYR IV ONE (09:38)
[2021-03-10] MEDS: MULTIVITAMIN TAB PO SCH (09:39)
[2021-03-10] MEDS: CHOLECALCIFEROL 1,000 UNITS 25 MCG TAB PO SCH (09:39)
[2021-03-10] MEDS: FOLIC ACID 1 MG TAB PO SCH (09:39)
[2021-03-10] MEDS: CALCIUM CARBONATE 1250MG TAB PO SCH (09:39)
[2021-03-10] MEDS: UMECLIDINIUM BROMIDE 62.5MCG/BLISTER 7 PUFFS/INHALER INH SCH (09:41)
--- NOTE | 2021-03-10 09:44 | Electrocardiogram Report ---
Test Reason : Blood Pressure : / mmHG Vent. Rate : 112 BPM Atrial Rate : 112 BPM P-R Int : 196 ms QRS Dur : 070 ms QT Int : 320 ms P-R-T Axes : 070 057 057 degrees QTc Int : 436 ms Poor data quality, interpretation may be adversely affected Sinus tachycardia Left atrial enlargement Borderline ECG When compared with ECG of 09-NOV-2017 16:16, No significant change Confirmed by Marty Whiting ([id number]) on 03/10/2021 9:44:01 AM Referred By: REFERRED SELF Confirmed By:Marty Whiting
--- NOTE | 2021-03-10 11:03 | Consultation Report ---
Special attention to left hip fracture. HISTORY OF PRESENT ILLNESS: This is a 71-year-old female who sustained a mechanical fall when she tr ipped on her porch, complains of pain in the left hip. She felt her hip snap when she struck the nia und. She is unable to walk. She was admitted to the hospitalist service. She was given IV ceftriax one in the ER for possible UTI. As per H and P, the patient was drinking alcohol at a house green party at the time of the incident. PAST MEDICAL HISTORY: Includes COPD, hypothyroidism, asymptomatic pyuria, ongoing tobacco abuse. PHYSICAL EXAMINATION: Left leg exam, calf is nontender to palpation. She can flex and extend the an kle, but exam is limited secondary to discomfort. Toes are warm and well perfused. The leg is short ened and externally rotated. I have reviewed an AP and lateral of the left hip does show a varus dis placed intertrochanteric hip fracture. Lesser trochanter is fractured. ASSESSMENT: A 71-year-old female with a left 3-part intertrochanteric hip fracture with displacement . PLAN: I discussed findings and treatment with her in detail. We discussed options of surgical treat ment versus nonsurgical treatment. RECOMMENDATIONS: Left intertrochanteric hip nail. We discussed the possibility of leg length, nonun ion, failure to heal, anesthesia complications, hardware failure, leg length discrepancy, etc. She i s agreeable and wished to proceed with surgical treatment. She does have a history of what she describes as ANESTHESIA ALLERGY, which appears to be extensive se dation from procedures. We will have her discuss further with Anesthesia. At this point, she is medically cleared for surgery. INR is 1.1, PTT is 23. She has been n.p.o. aft er midnight. Job ID: [id number]
[2021-03-10] MEDS ORDERED: PROPOFOL IV EMULSION 10 MG/ML 20 ML VIAL IV ONE ×2 (11:30→13:35)
[2021-03-10] MEDS ORDERED: fentaNYL citrate 100 MCG/2 ML VIAL ONE ×3 (11:30→14:33)
[2021-03-10] MEDS ORDERED: SUCCINYLCHOLINE CHLORIDE 20 MG/ML 10 ML VIAL IV ONE (11:30)
[2021-03-10] MEDS ORDERED: BUPIVACAINE 0.5 % 5 MG/1 ML MPF 30ML VIAL ONE (11:30)
[2021-03-10] MEDS ORDERED: DEXAMETHASONE SOD INJ 4 MG/ML VIAL ONE (11:30)
[2021-03-10] MEDS ORDERED: ONDANSETRON INJ 2 MG/ML 2 ML VIAL ONE (11:30)
--- NOTE | 2021-03-10 11:42 | Anesthesiology Consultation ---
Date of Service March 10, 2021 Assessment & Plan (1) UTI (urinary tract infection): (2) Alcohol intoxication: Chart Review Chart Review: Acceptable Risk for Surgery and Patient NOT seen in Pre Admission Testing Consults Requested none ASA ASA2 Proposed Anesthesia Anesthesia Type: General History Surgery Operation Date: 03/10/21 13:30 Proposed Procedures p Intramedullary Kishore Femur(Left) - Andrew Babb MD Height/Weight Height: 5 ft 6 in Weight: 59.4 kg Allergies Allergy/AdvReac Type Severity Reaction Status Date / Time ANESTHETIC Allergy Unknown Uncoded 10/22/03 00:48 HORSE SERUM Allergy Unknown Uncoded 10/22/03 00:48 DR MENENDEZ'Lv MEDICATIONS AdvReac Intermediate N/V/D Uncoded 11/09/17 16:54 Medications Home Medications Medication Instructions Recorded Confirmed Last Taken CALCIUM CARBONATE (CALCIUM 600) 600 mg PO DAILY #0 11/07/17 03/10/21 Unknown CHOLECALCIFEROL (D-5000) 5,000 unit PO DAILY #0 11/07/17 03/10/21 Unknown Celecoxib (Celebrex) 100 mg PO BID #0 11/07/17 03/10/21 Unknown FLUTICASONE FUROATE-VILANTEROL 1 puff INHALATION HS #0 11/07/17 03/10/21 Unknown (BREO ELLIPTA) LEVOTHYROXINE SODIUM 112 mcg PO DAILY #0 11/07/17 Unknown Spiriva Respimat 2 puff INHALATION DAILY 03/10/21 03/10/21 Unknown albuterol sulfate 2 puff INHALATION Q4H PRN 03/10/21 03/10/21 Unknown albuterol sulfate mg 03/10/21 Unknown sucralfate 1 gram tablet 1 g PO QID PRN 03/10/21 03/10/21 Unknown Active Medications Generic Name Dose Route Start Last Admin Trade Name Freq PRN Reason Stop Dose Admin Calcium Carbonate 1,250 mg 03/10/21 09:00 03/10/21 09:39 Calcium Carbonate 1250mg Tab PO 04/09/21 08:59 Not Given DAILY NORMA Folic Acid 1 mg 03/10/21 09:00 03/10/21 09:39 Folic Acid 1 Mg Tab PO 04/09/21 08:59 Not Given QAM [facility] Potassium Chloride 40 meq/ 1,020 mls @ 50 mls/hr 03/10/21 07:15 08/01/21 09:01 Sodium Chloride IV 04/09/21 07:14 50 mls/hr .[id number] NORMA Administration Ketorolac Tromethamine 15 mg 03/10/21 09:14 03/10/21 09:35 Ketorolac Tromethamine 15 Mg/Ml Vial IV 03/15/21 09:13 15 mg Q8H PRN Administration Pain Levothyroxine Sodium 112 mcg 03/10/21 07:15 03/10/21 08:15 Levothyroxine Sodium 112 Mcg Tablet PO 04/09/21 07:14 112 mcg DAILYBB NORMA Administration Multivitamins 1 tab 03/10/21 09:00 03/10/21 09:39 Multivitamin Tab PO 04/09/21 08:59 Not Given QAM NORMA Umeclidinium [place] 1 puffs 03/10/21 09:00 03/10/21 09:41 Umeclidinium [place] 62.5mcg/Blister 7 Puffs/Inhaler INH 04/09/21 08:59 Not Given DAILY NORMA Vitamin D 5,000 units 03/10/21 09:00 03/10/21 09:39 Cholecalciferol 1,000 Units 25 Mcg Tab PO 04/09/21 08:59 Not Given DAILY NORMA Past Medical History Medical History Hypothyroidism Exercise / Class Metabolic Activity II 4-5 Yardwork/Stairs/Walk up hill Past Anesthesia History No Hx of Anesthesia Complications and No Family Hx of Anesthesia Complications History of PONV No Hx of PONV and No Hx of Motion Sickness Social History Smoking Status: Current every day smoker tobacco type: cigarettes Smoking cigarettes per day: 20 Do You Dip or Chew Tobacco: No Hx Alcohol Use: Yes Alcohol type: hard liquor alcohol intake frequency: a few times a week Hx Substance Use: No Physical Exam Vital Signs Last Vital Signs Temp 37.1 C 03/10/21 06:24 Pulse 115 H 03/10/21 07:00 Resp 20 03/10/21 06:24 BP 163/90 H 03/10/21 06:24 Pulse Ox 97 03/10/21 06:24 Testing Laboratory Results 03/10/21 03:24 03/10/21 03:24 PT 10.8 Seconds (9.0-12.0) 03/10/21 03:24 INR 1.1 (0.9-1.1) 03/10/21 03:24 APTT 23.6 Seconds (21.0-31.0) 03/10/21 03:24 Urine Color Yellow 03/10/21 03:45 Urine Appearance Clear (Clear) 03/10/21 03:45 Urine pH 5.5 (4.5-7.5) 03/10/21 03:45 Ur Specific [place] 1.016 (1.000-1.030) 03/10/21 03:45 Urine Protein Negative (Negative) 03/10/21 03:45 Urine Glucose (UA) Negative (Negative) 03/10/21 03:45 Urine Ketones Negative (Negative) 03/10/21 03:45 Urine Nitrite Positive (Negative) A 03/10/21 03:45 Ur Leukocyte Esterase 1+ (Negative) H 03/10/21 03:45 Urine WBC (Auto) 5-10 /hpf (0-5) H 03/10/21 03:45 Urine RBC (Auto) 0-4 /hpf (0-4) 03/10/21 03:45 U Hyaline Cast (Auto) 1-5 /lpf (0-5) 03/10/21 03:45 U Epithel Cells (Auto) 10-20 /lpf (0-5) H 03/10/21 03:45 Urine Bacteria (Auto) 4+ (Negative) H 03/10/21 03:45 Blood Type A Positive 03/10/21 03:37 Antibody Screen NEGATIVE 03/10/21 03:37 Electrocardiogram Date: 03/10/21 Findings: + ST @ (at 112;LAE) Chest X-Ray Date: 03/10/21 Findings: + NAD
[2021-03-10] MEDS ORDERED: ATROPINE SULFATE 0.1 MG/ML 10ML SYR IV PRN (12:07)
[2021-03-10] MEDS ORDERED: ONDANSETRON INJ 2 MG/ML 2 ML VIAL IV PRN (12:07)
[2021-03-10] MEDS ORDERED: fentaNYL citrate 100 MCG/2 ML VIAL IV PRN (12:07)
[2021-03-10] MEDS ORDERED: FLUMAZENIL 0.1 MG/1 ML 10 ML VIAL IV PRN (12:07)
[2021-03-10] MEDS ORDERED: ePHEDrine sulfate 50 MG/ML AMP IV PRN (12:07)
[2021-03-10] MEDS ORDERED: KETAMINE 50 MG/5 ML SYRINGE ONE (12:26)
[2021-03-10] MEDS ORDERED: ePHEDrine sulfate 50 MG/ML SYR ONE (12:59)
--- NOTE | 2021-03-10 13:54 | Post Operative Brief Note ---
Immediate Post Op Note v1 Date of Surgery March 10, 2021 Pre & Post Diagnosis Operation Date: 03/10/21 13:30 Pre-Op Diagnosis: Left Hip Fracture Post-Op Diagnosis: Left Hip Fracture I identified the patient and participated in the time-out.: Yes Procedure Operation Date: 03/10/21 13:30 Actual Procedures p Left Hip Intramedullary Nail(Left) - Andrew Babb MD Surgeon Andrew Babb MD [facility] Estimated Blood Loss 50 Findings Consistent with Post-Op Diagnosis Drains Dean Catheter (Patient arrived to OR with dean intact)
--- NOTE | 2021-03-10 14:12 | Fluoroscopy Report ---
FL hip LT 2-3V HISTORY: 71 years-old Female LEFT HIP [total joint arthroplasty COMPARISON: [Radiographs of same day TECHNIQUE: 4 spot fluoroscopic images of the left hip were obtained utilizing 93.9 seconds fluoroscop y time FINDINGS: Status post placement of an intratrochanteric nail with elongated medullary geraldo fixating the acute fr acture of the proximal left femur which demonstrates improved alignment. The lesser trochanteric frac ture fragment remains displaced medially. Expected postoperative soft tissue swelling with deep tissu e air. No unexpected opaque foreign body identified. IMPRESSION: Fluoroscopic assistance as above. ACT 112: Negative or not required by law. The above report was generated using voice recognition software. It may contain grammatical, syntax o r spelling errors. Electronically signed by: Hema Grant M.D. 03/10/2021 2:10 PM
--- NOTE | 2021-03-10 14:40 | XRay Report ---
XR hip LT min 2V HISTORY: 71 years-old Female Post-Operative implant position acute fracture of the left hip COMPARISON: Left hip radiographs same day at 4:20 AM TECHNIQUE: 2 views of the left hip FINDINGS: Status post placement of an intratrochanteric nail with medullary geraldo fixating the acute comminuted f ractures of the proximal left femur. There is improved alignment with mild persistent fracture distra ction. The lesser trochanteric fracture fragment is displaced medially. Lateral skin teddy are pres ent along with expected postoperative soft tissue swelling and deep tissue air. No unexpected opaque foreign body. IMPRESSION: ORIF of the left femur with improved alignment. ACT 112: Negative or not required by law. The above report was generated using voice recognition software. It may contain grammatical, syntax o r spelling errors. Electronically signed by: Hema Grant M.D. 03/10/2021 2:39 PM
[2021-03-10] MEDS ORDERED: LABETALOL HCL IV 5 MG/ML 20ML IV STA (14:46)
[2021-03-10] MEDS ORDERED: LABETALOL HCL IV 5 MG/ML 20ML IV ONE (14:48)
[2021-03-10] MEDS ORDERED: LABETALOL HCL IV 5 MG/ML 20ML IV PRN (14:53)
--- NOTE | 2021-03-10 14:57 | Anesthesiology Progress Note ---
Date of Service March 10, 2021 Anesthesia Post Procedure Vital Signs Vital Signs: Temp Pulse Pulse Pulse Resp BP BP 03/10/21 14:45 87 14 03/10/21 14:35 85 14 03/10/21 14:25 86 14 03/10/21 14:15 86 20 03/10/21 14:05 35.7 C L 89 16 03/10/21 12:00 36.8 C 102 H 16 137/86 03/10/21 07:00 115 H 03/10/21 06:24 37.1 C 114 H 20 163/90 H 03/10/21 06:13 142/77 H 03/10/21 03:18 36.8 C 147/117 H BP Pulse Ox 03/10/21 14:45 134/102 H 100 03/10/21 14:35 131/103 H 100 03/10/21 14:25 147/98 H 100 03/10/21 14:15 145/87 H 100 03/10/21 14:05 120/78 100 03/10/21 12:00 95 03/10/21 07:00 03/10/21 06:24 97 03/10/21 06:13 03/10/21 03:18 Pain Intensity Left Hip: Pain Intensity: 4 Transfer of Care Handoff Completed per policy Notes Mental Status: alert / awake / arousable Patient Amnestic to Procedure: Yes Nausea / Vomiting: adequately controlled Pain: adequately controlled Airway Patency, RR, SpO2: stable & adequate BP & HR: stable & adequate Hydration State: stable & adequate Anesthetic Complications: no major complications apparent
--- NOTE | 2021-03-10 16:20 | Operative Report (OR) ---
DATE OF SURGERY: 03/10/2021. PREOPERATIVE DIAGNOSIS: Left hip intramedullary nail. POSTOPERATIVE DIAGNOSIS: Left hip intramedullary nail. PROCEDURE: Left hip intramedullary nail fixation of intertrochanteric fracture. ANESTHESIA: General anesthesia. INDICATIONS: A female who sustained the above-mentioned injury with displaced unstable intertrochant chelo fracture, reverse oblique extension is noted. She presents for intramedullary nail. The risks and benefits have been discussed including, but not limited to, risk of infection, nerve in jury, stiffness, loss of motion, failure to improve, etc. Reasonable outcomes and options of treatmen t were discussed. An explanation of appropriate alternatives to the procedure that may be advantageou s were discussed and their risks and benefits, as well as the risks and benefits of not proceeding wi th treatment. I offered to answer any additional inquiries concerning the treatment involved. All the patients questions were answered. The patient is agreeable, understanding of the treatment plan and alternatives, and wishes to proceed with the treatment plan. DESCRIPTION OF PROCEDURE: The patient was placed in a fracture table after administration of general anesthesia. Longitudinal traction was applied and performed a closed reduction maneuver. This resu lted in acceptable alignment of the hip. The patient was given preoperative antibiotics prior to the skin incision. I made a longitudinal incision approximately 2 fingerbreadths proximal to the greater trochanter. Di ssection was carried down through the skin and subcutaneous tissue. The fascia was sharply incised a nd I bluntly dissected to the greater trochanter. I placed a guidewire into the tip of the greater t rochanter. This was placed into the intramedullary canal. I then overdrilled with the entry reamer. I then placed a ball-tipped guidewire across the fracture site into the canal. The canal was held in the position of reduction as a mallet helped on the lateral aspect of the thigh to push the greate r trochanteric piece in place. I then reamed up to a size 11.5 and a size 10 intermediate TFN nail w as chosen. This was placed into the canal. I made an incision over the lateral thigh for the helical blade. I incised the fascia and dissection was carried down to the bone in a blunt fashion. The guide for the helical blade were placed agains t the bone and I tightened these. They helped also to reduce the fracture. I then drove a guidewire into the center-center position of the femoral head. I selected a size 95 helical blade and then I overdrilled with both drills. The blade was then placed and this resulted in good alignment and stab ility. Attention was focused on distal interlocking screw. We made an incision over the lateral thigh and t he jigs were placed adjacent to bone after incised the periosteum and the soft tissue. I then drille d through both cortices and placed a 38 mm locking screw, this resulted in excellent bite. Final C-a rm radiographs confirmed a screw across the nail and confirmed a good reduction. Incisions were irri gated. Fascia was closed with 0 Vicryl. Subcutaneous layer was closed with 2-0 Vicryl ____ 2-0 Vicr yl. Skin was closed with teddy. A soft dressing was applied. The patient was taken to the PACU i n stable condition. POSTOPERATIVE PLAN: Will be 50% weightbearing and ambulation with a walker. We will do Lovenox and SCDs for DVT prophylaxis. Job ID: [id number]
[2021-03-10] MEDS: FLUTICASONE/VILANTEROL 200/25MCG 14 PUFFS/INHALER INH SCH (19:52)
--- NOTE | 2021-03-10 21:49 | Hospitalist Progress Note ---
Date of Service March 10, 2021 Assessment & Plan (1) Hip fracture, left: Plan: Secondary to mechanical fall Xray of L hip showed Acute mildly angulated and displaced fracture of the left proximal femur. S/P Left hip intramedullary nail fixation of intertrochanteric fracture performed today by Dr. Babb No post op complication Continue incentive spirometry Continue pain control Fall precaution Hypothyroidism Continue Levothyroxine Alcohol abuse Will monitor fr sign of alcohol withdrawn Continue ativan prn Continue thiamine and folic acid Abnormal UA UA positive for nitrite Received Rocephin in the ER and Cefazolin today Urine cx pending Will hold additional abx for now since pt is asymptomatic Tobacco abuse On nicotine patch Counseling on tobacco cessation sensation Hyperglycemia Hgba1c pending Continue monitor DVT px on SCDs for now , plan to start on Lovenox BID Full code Admission and Anticipated Discharge Date Admission Date: March 10, 2021 Subjective Pt was seen and examined for follow up of left hip pain Lying in bed with no distress Continue to have pain in her left hip that is worsening with movement Denies any chest pain, palpitation, dizziness and SOB Physical Exam Physical Exam: General- No acute distress Head- atraumatic Eyes- PERRL, EOMI, ENT- oropharynx clear Neck- supple, no JVD Lungs- clear to auscultation Heart- regular rhythm; no murmur Abdomen- normal bowel sounds, soft, nontender Extremities- no calf tenderness, left hip pain Neuro- alert, oriented x 3; PERRL, EOMI; no facial palsy; no dysarthria Skin- warm & dry Results & Data Results & Data ([facility]) Vital Signs (Past 12 Hours) Vital Signs Temp Pulse Pulse Resp BP BP Pulse Ox 03/10/21 20:00 36.8 C 74 18 128/74 95 03/10/21 16:45 36.8 C 94 H 18 112/76 94 03/10/21 16:15 37.0 C 78 20 129/80 97 03/10/21 15:45 36.4 C L 78 18 135/83 95 03/10/21 15:30 36.4 C L 74 18 137/88 95 03/10/21 15:05 94 H 18 139/82 94 03/10/21 14:55 36.2 C L 76 18 132/86 97 03/10/21 14:45 87 14 134/102 H 100 03/10/21 14:35 85 14 131/103 H 100 03/10/21 14:25 86 14 147/98 H 100 03/10/21 14:15 86 20 145/87 H 03/10/21 14:05 35.7 C L 89 16 120/78 100 03/10/21 12:00 36.8 C 102 H 16 137/86 95
[2021-03-11] MEDS: POTASSIUM CHLORIDE 40 MEQ in SODIUM CHLORIDE 0.9% 1000ML 1,000 ML IV SCH (03:17)
[2021-03-11] MEDS: LEVOTHYROXINE SODIUM 112 MCG TABLET PO SCH (06:06)
[2021-03-11] MEDS: KETOROLAC TROMETHAMINE 15 MG/ML VIAL IV PRN ×3 (06:14→23:38)
[2021-03-11 07:26] LABS: Basophils # (auto) 0.02 K/uL (0-0.2); Basophils % (auto) 0.2 %; Eosinophils # (auto) 0.02 K/uL (0-0.5); Eosinophils % (auto) 0.2 %; Hematocrit (blood only) 34.9 % (37-47); Hemoglobin 11.5 g/dL (12.0-16.0); Immature Granulocytes # (auto) 0.03 K/uL (0.00-0.02); Immature Granulocytes % (auto) 0.3 %; Lymphocytes # (auto) 1.62 K/uL (1.2-3.4); Lymphocytes % (auto) 16.3 %; Mean Corpuscular Hemoglobin 33.3 pg (25-34); Mean Corpuscular Volume 101.2 fL (80-100); Mean Platelet Volume 9.7 fL (7.4-10.4); Monocytes # (auto) 0.95 K/uL (0.11-0.59); Monocytes % (auto) 9.6 %; Neutrophils # (auto) 7.27 K/uL (1.4-6.5); Neutrophils % (auto) 73.4 %; Platelet Count 189 K/uL (130-400); RDW Coefficient of Variation 13.9 % (11.5-14.5); RDW Standard Deviation 51.5 fL (36.4-46.3); Red Blood Count 3.45 M/uL (4.2-5.4); White Blood Count 9.91 K/uL (4.8-10.8)
[2021-03-11 07:52] LABS: Estimated Average Glucose 97 mg/dl
[2021-03-11 08:02] LABS: BUN Creatinine Ratio 30.7 (10-20); Calcium 8.4 mg/dl (8.5-10.1); Est GFR (African American) 94.3 ml/min; Est GFR (Non-African American) 81.3 ml/min; Potassium 4.3 mmol/L (3.5-5.1)
[2021-03-11] MEDS: CHOLECALCIFEROL 1,000 UNITS 25 MCG TAB PO SCH (08:24)
[2021-03-11] MEDS: MULTIVITAMIN TAB PO SCH (08:24)
[2021-03-11] MEDS: UMECLIDINIUM BROMIDE 62.5MCG/BLISTER 7 PUFFS/INHALER INH SCH (08:27)
[2021-03-11] MEDS: THIAMINE HCL 100 MG TAB PO SCH (08:28)
[2021-03-11] MEDS: CALCIUM CARBONATE 1250MG TAB PO SCH (08:28)
[2021-03-11] MEDS: FOLIC ACID 1 MG TAB PO SCH (08:28)
[2021-03-11] MEDS: ENOXAPARIN INJ 30 MG/0.3 ML SYR SQ SCH ×3 (08:32→22:12)
--- NOTE | 2021-03-11 12:59 | Orthopedic Progress Note ---
Date of Service March 11, 2021 Assessment & Plan (1) Hip fracture, left: Plan: Postop day 1 status post left TFN PT/OT protocols. Toe-touch weightbearing DVT prophylaxis-enoxaparin, SCDs, ABDULLAHI hose Pain management as written. Admission and Anticipated Discharge Date Admission Date: March 10, 2021 Subjective correct weight bearing status is Pwb- 50 % or less Postop day 1 status post left TFN Patient was sitting at the bedside and has just gotten back into her bed with the help of staff. She is having some pain in the left hip. No other complaints. Denies shortness of breath, chest pain, lightheadedness. Physical Exam Physical Exam: Dressings have some scant drainage noted on the lower dressing. Otherwise they are intact. Mild swelling of the thigh. Calves are soft nontender. Neurovascular intact. Toes are mobile. Results & Data ([facility]) Vital Signs (Past 12 Hours) Vital Signs Temp Pulse Pulse Resp BP Pulse Ox 03/11/21 12:00 37.0 C 88 16 139/81 94 03/11/21 08:00 36.6 C 83 18 116/76 95 03/11/21 07:10 85 03/11/21 04:05 37.1 C 83 18 129/73 93 Laboratory Results Laboratory Results WBC 9.91 K/uL (4.8-10.8) 03/11/21 06:32 RBC 3.45 M/uL (4.2-5.4) L 03/11/21 06:32 Hgb 11.5 g/dL (12.0-16.0) L D 03/11/21 06:32 Hct 34.9 % (37-47) L 03/11/21 06:32 MCV 101.2 fL (80-100) H 03/11/21 06:32 MCH 33.3 pg (25-34) 03/11/21 06:32 MCHC 33.0 g/dL (32-36) 03/11/21 06:32 RDW Std Deviation 51.5 fL (36.4-46.3) H 03/11/21 06:32 RDW Coeff of [place] 13.9 % (11.5-14.5) 03/11/21 06:32 Plt Count 189 K/uL (130-400) 03/11/21 06:32 MPV 9.7 fL (7.4-10.4) 03/11/21 06:32 Immature Gran % (Auto) 0.3 % 03/11/21 06:32 Neut % (Auto) 73.4 % 03/11/21 06:32 Lymph % (Auto) 16.3 % 03/11/21 06:32 [place] % (Auto) 9.6 % 03/11/21 06:32 Eos % (Auto) 0.2 % 03/11/21 06:32 Baso % (Auto) 0.2 % 03/11/21 06:32 Neut # (Auto) 7.27 K/uL (1.4-6.5) H 03/11/21 06:32 Lymph # (Auto) 1.62 K/uL (1.2-3.4) 03/11/21 06:32 [place] # (Auto) 0.95 K/uL (0.11-0.59) H 03/11/21 06:32 Eos # (Auto) 0.02 K/uL (0-0.5) 03/11/21 06:32 Baso # (Auto) 0.02 K/uL (0-0.2) 03/11/21 06:32 Immature Gran # (Auto) 0.03 K/uL (0.00-0.02) H 03/11/21 06:32 PT 10.8 Seconds (9.0-12.0) 03/10/21 03:24 INR 1.1 (0.9-1.1) 03/10/21 03:24 APTT 23.6 Seconds (21.0-31.0) 03/10/21 03:24 PTT Ratio 0.9 03/10/21 03:24 Sodium 137 mmol/L (136-145) 03/11/21 06:32 Potassium 4.3 mmol/L (3.5-5.1) D 03/11/21 06:32 Chloride 106 mmol/L (98-107) 03/11/21 06:32 Carbon Dioxide 27 mmol/L (21-32) 03/11/21 06:32 Anion Gap 4.0 (3-11) 03/11/21 06:32 BUN 23 mg/dl (7-18) H D 03/11/21 06:32 Creatinine 0.75 mg/dl (0.6-1.2) 03/11/21 06:32 Est Cr Clr Drug Dosing 66.0 ml/min 03/11/21 06:32 Est GFR ( Amer) 94.3 ml/min 03/11/21 06:32 Est GFR (Non-Af Amer) 81.3 ml/min 03/11/21 06:32 BUN/Creatinine Ratio 30.7 (10-20) H 03/11/21 06:32 Glucose 108 mg/dl (70-99) H 03/11/21 06:32 Estimat Average Glucose 97 mg/dl 03/10/21 03:24 Hemoglobin A1c 5.0 % (4.5-5.6) 03/10/21 03:24 Calcium 8.4 mg/dl (8.5-10.1) L 03/11/21 06:32 Magnesium 2.0 mg/dl (1.8-2.4) 03/10/21 03:24 Total Bilirubin 0.3 mg/dl (0.2-1) 03/10/21 03:24 AST 20 U/L (15-37) 03/10/21 03:24 ALT 27 U/L (12-78) 03/10/21 03:24 Alkaline Phosphatase 89 U/L (45-117) 03/10/21 03:24 Total Protein 7.3 gm/dl (6.4-8.2) 03/10/21 03:24 Albumin 3.6 gm/dl (3.4-5.0) 03/10/21 03:24 Globulin 3.7 gm/dl (2.5-4.0) 03/10/21 03:24 Albumin/Globulin Ratio 1.0 (0.9-2) 03/10/21 03:24 Urine Color Yellow 03/10/21 03:45 Urine Appearance Clear (Clear) 03/10/21 03:45 Urine pH 5.5 (4.5-7.5) 03/10/21 03:45 Ur Specific [place] 1.016 (1.000-1.030) 03/10/21 03:45 Urine Protein Negative (Negative) 03/10/21 03:45 Urine Glucose (UA) Negative (Negative) 03/10/21 03:45 Urine Ketones Negative (Negative) 03/10/21 03:45 Urine Blood Trace (Negative) H 03/10/21 03:45 Urine Nitrite Positive (Negative) A 03/10/21 03:45 Urine Bilirubin Negative (Negative) 03/10/21 03:45 Urine Urobilinogen Negative (Negative) 03/10/21 03:45 Ur Leukocyte Esterase 1+ (Negative) H 03/10/21 03:45 Urine WBC (Auto) 5-10 /hpf (0-5) H 03/10/21 03:45 Urine RBC (Auto) 0-4 /hpf (0-4) 03/10/21 03:45 U Hyaline Cast (Auto) 1-5 /lpf (0-5) 03/10/21 03:45 U Epithel Cells (Auto) 10-20 /lpf (0-5) H 03/10/21 03:45 Urine Bacteria (Auto) 4+ (Negative) H 03/10/21 03:45 Ethyl Alcohol mg/dL 91.0 mg/dl (0-3) H 03/10/21 04:35 COVID-19 Eval Order Covid19 at [facility] 03/10/21 03:30 SARS-CoV-2 (PCR) NEGATIVE (Negative) 03/10/21 03:30 Blood Type A Positive 03/10/21 03:37 Antibody Screen NEGATIVE 03/10/21 03:37 Impressions Hip X-Ray 03/10/21 14:10 XR hip LT min 2V HISTORY: 71 years-old Female Post-Operative implant position acute fracture of the left hip COMPARISON: Left hip radiographs same day at 4:20 AM TECHNIQUE: 2 views of the left hip FINDINGS: Status post placement of an intratrochanteric nail with medullary egraldo fixating the acute comminuted fractures of the proximal left femur. There is improved alignment with mild persistent fracture distraction. The lesser trochanteric f racture fragment is displaced medially. Lateral skin teddy are present along with expected postoperative soft tissue swelling and deep tissue air. No unexpected opaque foreign body. IMPRESSION: ORIF of the left femur with improved alignment. ACT 112: Negative or not required by law. The above report was generated using voice recognition software. It may contain grammatical, syntax or spelling errors. Electronically signed by: Hema Grant M.D. 03/10/2021 2:39 PM
[2021-03-11] MEDS ORDERED: Nursing to Pharmacy Communication SCH (15:00)
--- NOTE | 2021-03-11 21:13 | Hospitalist Progress Note ---
Date of Service March 11, 2021 Assessment & Plan (1) Hip fracture, left: Plan: Secondary to mechanical fall Xray of L hip showed Acute mildly angulated and displaced fracture of the left proximal femur S/P Left hip intramedullary nail fixation of intertrochanteric fracture performed by Dr. Babb on 03/10/21 No post op complication Continue incentive spirometry Continue pain control Continue PT/OT eval-recommend inpatient rehab Not interested to go to inpatient rehab- Refused inpatient rehab Fall precaution Hypothyroidism Continue Levothyroxine Alcohol abuse Will monitor fr sign of alcohol withdrawn Continue ativan prn Continue thiamine and folic acid UTI UA positive for nitrite Received Rocephin in the ER and Cefazolin today Urine cx positive for gram negative bacilli Will be restart IV Rocephin Follow-up urine sensitivity Tobacco abuse On nicotine patch Counseling on tobacco cessation sensation Hyperglycemia Hgba1c 5 Continue monitor DVT px on Lovenox BID Full code Disposition PT recommended inpatient rehab but patient refused and not interested in the idea to go to rehab Admission and Anticipated Discharge Date Admission Date: March 10, 2021 Subjective Patient was seen and examined for postop follow-up Sitting in chair with no distress Patient said that she is having pain mostly with movement of the left hip She said she walked a little with therapy today She is not interested to go to rehab Denies any chest pain, palpitation, dizziness, shortness of breath. Physical Exam Physical Exam: General- No acute distress Head- atraumatic Eyes- PERRL, EOMI, ENT- oropharynx clear Neck- supple, no JVD Lungs- clear to auscultation Heart- regular rhythm; no murmur Abdomen- normal bowel sounds, soft, nontender Extremities- no calf tenderness, left hip pain Neuro- alert, oriented x 3; PERRL, EOMI; no facial palsy; no dysarthria Skin- warm & dry Results & Data Results & Data ([facility]) Vital Signs (Past 12 Hours) Vital Signs Temp Pulse Resp BP Pulse Ox 03/11/21 18:39 37.3 C 94 H 18 120/73 94 03/11/21 15:00 37.2 C 97 H 18 119/72 94 03/11/21 12:00 37.0 C 88 16 139/81 94
[2021-03-11] MEDS: cefTRIAXone SODIUM 1,000 MG in DEXTROSE 5% 50 ML IV SCH (21:39)
[2021-03-11] MEDS: FLUTICASONE/VILANTEROL 200/25MCG 14 PUFFS/INHALER INH SCH (22:09)
[2021-03-12] MEDS: LEVOTHYROXINE SODIUM 112 MCG TABLET PO SCH (06:05)
[2021-03-12 06:32] LABS: Hemoglobin 10.6 g/dL (12.0-16.0); Mean Corpuscular Hemoglobin 32.9 pg (25-34); Mean Corpuscular Hgb Conc 33.1 g/dL (32-36); Mean Corpuscular Volume 99.4 fL (80-100); Mean Platelet Volume 9.9 fL (7.4-10.4); Platelet Count 163 K/uL (130-400); RDW Coefficient of Variation 13.7 % (11.5-14.5); RDW Standard Deviation 49.5 fL (36.4-46.3); Red Blood Count 3.22 M/uL (4.2-5.4)
[2021-03-12 07:00] LABS: BUN Creatinine Ratio 28.7 (10-20); Calcium 7.9 mg/dl (8.5-10.1); Creatinine Clr Calc Pharmacy 81.5 ml/min; Est GFR (African American) 107.2 ml/min; Est GFR (Non-African American) 92.5 ml/min; Potassium 3.9 mmol/L (3.5-5.1)
--- NOTE | 2021-03-12 07:10 | Communication Note ---
Date of Service: March 12, 2021 Patient complaining of sore throat and neck pain yesterday afternoon. Not immediately postop as per patient. New cough symptoms productive of greenish sputum. AP Sore throat, neck pain New Cough Symptoms Rule out HAP Soft tissue neck CT Portable chest x-ray Will relay to AM provider.
[2021-03-12] MEDS ORDERED: KETOROLAC TROMETHAMINE 15 MG/ML VIAL IV ONE (07:12)
[2021-03-12] MEDS ORDERED: NSS + 20MEQ KCL 20 MEQ/1,000 ML BAG IV ONE (07:15)
--- NOTE | 2021-03-12 07:52 | XRay Report ---
XR chest 1V portable HISTORY: 71 years-old Female cough acute cough COMPARISON: Portable AP view of the chest TECHNIQUE: AP view of the chest FINDINGS: Cardiomediastinal and hilar silhouettes are within normal limits. Minimal linear scarring/atelectasis of the left lung base. No pneumothorax, pleural effusion, airspace consolidation or overt pulmonary edema. Degenerative changes of the shoulders and spine. IMPRESSION: No acute process. ACT 112: Negative or not required by law. The above report was generated using voice recognition software. It may contain grammatical, syntax o r spelling errors. Electronically signed by: Hema Grant M.D. 03/12/2021 7:50 AM
[2021-03-12] MEDS ORDERED: OPTIRAY 320 100ml IV ONE (08:32)
[2021-03-12] MEDS: ENOXAPARIN INJ 30 MG/0.3 ML SYR SQ SCH (09:12)
[2021-03-12] MEDS: CHOLECALCIFEROL 1,000 UNITS 25 MCG TAB PO SCH (09:13)
[2021-03-12] MEDS: FOLIC ACID 1 MG TAB PO SCH (09:13)
[2021-03-12] MEDS: CALCIUM CARBONATE 1250MG TAB PO SCH (09:13)
[2021-03-12] MEDS: MULTIVITAMIN TAB PO SCH (09:13)
[2021-03-12] MEDS: THIAMINE HCL 100 MG TAB PO SCH (09:13)
[2021-03-12] MEDS: UMECLIDINIUM BROMIDE 62.5MCG/BLISTER 7 PUFFS/INHALER INH SCH (09:14)
--- NOTE | 2021-03-12 09:38 | CT Scan Report ---
CT SCAN OF THE NECK WITH IV CONTRAST CLINICAL HISTORY: Sore throat. Neck pain. COMPARISON STUDY: No priors. TECHNIQUE: Following the IV administration of 94 cc of Optiray 320, CT scan of the soft tissues of e neck was performed from the skull base to the upper chest. Images are reviewed in the axial, sagitt al, and coronal planes. IV contrast was administered without complication. A dose lowering techniqu e was utilized adhering to the principles of ALARA. CT DOSE: 315.28 mGy.cm FINDINGS: Pharynx: The pharyngeal soft tissues are normal in appearance. The pharyngeal airway is widely patent . There is no evidence of mass lesion. The vocal cords are symmetric. The epiglottis is normal. The p arapharyngeal fat is well maintained. The prevertebral/retropharyngeal soft tissues are within normal limits. The esophageal wall appears circumferentially thickened. Lymphadenopathy: No cervical lymphadenopathy is seen Thyroid: Normal in size and attenuation. Salivary glands: The parotid and submandibular glands are within normal limits. Brain parenchyma: The visualized brain parenchyma at the skull base is normal in appearance. Vascular structures: The carotid arteries and jugular veins are patent. Calcified plaque is seen in t he carotid bulbs. Skeletal structures: The skeletal structures are osteopenic. Imaged portions of the calvarium at the skull base are within normal limits. The cervical spine appears intact noting multilevel spondylosis. No lytic or blastic lesion is seen. Sinuses and mastoids: The visualized paranasal sinuses are clear. The mastoid air cells are well pneu matized. Lung apices: Visualized apical lung parenchyma is clear. IMPRESSION: 1. The pharyngeal soft tissues are normal as visualized. 2. Question circumferential wall thickening of the upper esophagus. Correlate clinically for evidence of esophagitis. If clinically warranted this could be further assessed with endoscopy. ACT 112: Negative or not required by law. Electronically signed by: Loyd Dallas M.D. 03/12/2021 9:37 AM
[2021-03-12] MEDS: ACETAMINOPHEN 325 MG TAB PO PRN (10:54)
--- NOTE | 2021-03-12 13:42 | Orthopedic Progress Note ---
Date of Service March 12, 2021 Assessment & Plan (1) Hip fracture, left: Plan: Postop day 2 status post left TFN PT/OT protocols. Toe-touch weightbearing DVT prophylaxis-enoxaparin, SCDs, ABDULLAHI greer Pain management as written. Orthopedics will sign off at this time. Charge instructions placed in DC instructions section. Please call with any questions. Admission and Anticipated Discharge Date Admission Date: March 10, 2021 Subjective Postop day 2 Patient sitting up in her chair awake and alert. Still having pain today but it feels better. Patient looks much better today as well. She appears to be in much better mood. Discussed weightbearing status and how long. No other complaints today. Physical Exam Physical Exam: Dressings changed. Thigh swollen but soft. Consistent with surgery. Calves soft and nontender. Neurovascular intact. Toes are mobile. Results & Data ([facility]) Vital Signs (Past 12 Hours) Vital Signs Temp Pulse Pulse Resp BP BP Pulse Ox 03/12/21 12:00 36.7 C 88 18 119/72 95 03/12/21 08:00 37.6 C H 90 18 144/81 H 93 03/12/21 07:21 89
[2021-03-12] MEDS: KETOROLAC TROMETHAMINE 15 MG/ML VIAL IV PRN ×2 (15:55→23:54)
--- NOTE | 2021-03-12 17:44 | Hospitalist Progress Note ---
Date of Service March 12, 2021 Assessment & Plan (1) Hip fracture, left: Plan: Secondary to mechanical fall Xray of L hip showed Acute mildly angulated and displaced fracture of the left proximal femur S/P Left hip intramedullary nail fixation of intertrochanteric fracture performed by Dr. Babb on 03/10/21 No post op complication Continue incentive spirometry Continue pain control Continue PT/OT eval-recommend inpatient rehab Not interested to go to inpatient rehab- Refused inpatient rehab Fall precaution Hypothyroidism Continue Levothyroxine Alcohol abuse Will monitor fr sign of alcohol withdrawn Continue ativan prn Continue thiamine and folic acid UTI UA positive for nitrite Received Rocephin in the ER and Cefazolin today Urine cx positive for gram negative bacilli Continue IV Rocephin Sore throat Soft tissue neck showed Question circumferential wall thickening of the upper esophagus. Correlate clinically for evidence of esophagitis. Will add PPI If symptoms worsening, consider GI consult for EGD Tobacco abuse On nicotine patch Counseling on tobacco cessation sensation Hyperglycemia Hgba1c 5 Continue monitor DVT px on Lovenox BID Full code Disposition PT recommended inpatient rehab but patient refused and not interested in the idea to go to rehab Admission and Anticipated Discharge Date Admission Date: March 10, 2021 Subjective Pt was seen and examined for postop follow up Sitting in chair with no distress Pt said that she works with therapy today and did much better today Not interested to go to rehab Denies any chest pain, palpitation, dizziness and SOB Physical Exam Physical Exam: General- No acute distress Head- atraumatic Eyes- PERRL, EOMI, ENT- oropharynx clear Neck- supple, no JVD Lungs- clear to auscultation Heart- regular rhythm; no murmur Abdomen- normal bowel sounds, soft, nontender Extremities- no calf tenderness, left hip pain Neuro- alert, oriented x 3; PERRL, EOMI; no facial palsy; no dysarthria Skin- warm & dry Results & Data Results & Data ([facility]) Vital Signs (Past 12 Hours) Vital Signs Temp Pulse Pulse Resp BP BP Pulse Ox 03/12/21 16:47 90 03/12/21 15:24 37.4 C 84 18 130/83 94 03/12/21 12:00 36.7 C 88 18 119/72 95 03/12/21 08:00 37.6 C H 90 18 144/81 H 93 03/12/21 07:21 89
[2021-03-12] MEDS: cefTRIAXone SODIUM 1,000 MG in DEXTROSE 5% 50 ML IV SCH (21:02)
[2021-03-12] MEDS: FLUTICASONE/VILANTEROL 200/25MCG 14 PUFFS/INHALER INH SCH (21:07)
[2021-03-13] MEDS: LEVOTHYROXINE SODIUM 112 MCG TABLET PO SCH (05:56)
[2021-03-13] MEDS: CALCIUM CARBONATE 1250MG TAB PO SCH (09:29)
[2021-03-13] MEDS: MULTIVITAMIN TAB PO SCH (09:30)
[2021-03-13] MEDS: CHOLECALCIFEROL 1,000 UNITS 25 MCG TAB PO SCH (09:30)
[2021-03-13] MEDS: PANTOprazole 40 MG TAB PO SCH (09:30)
[2021-03-13] MEDS: FOLIC ACID 1 MG TAB PO SCH (09:30)
[2021-03-13] MEDS: ENOXAPARIN INJ 40 MG/0.4 ML SYR SQ SCH (09:30)
[2021-03-13] MEDS: THIAMINE HCL 100 MG TAB PO SCH (09:30)
[2021-03-13] MEDS: UMECLIDINIUM BROMIDE 62.5MCG/BLISTER 7 PUFFS/INHALER INH SCH (09:31)
[2021-03-13 10:55] LABS: Basophils # (auto) 0.01 K/uL (0-0.2); Basophils % (auto) 0.2 %; Eosinophils # (auto) 0.31 K/uL (0-0.5); Eosinophils % (auto) 4.7 %; Hematocrit (blood only) 31.1 % (37-47); Hemoglobin 10.6 g/dL (12.0-16.0); Immature Granulocytes # (auto) 0.02 K/uL (0.00-0.02); Immature Granulocytes % (auto) 0.3 %; Lymphocytes # (auto) 1.64 K/uL (1.2-3.4); Lymphocytes % (auto) 24.7 %; Mean Corpuscular Hemoglobin 33.8 pg (25-34); Mean Corpuscular Hgb Conc 34.1 g/dL (32-36); Mean Platelet Volume 9.9 fL (7.4-10.4); Monocytes % (auto) 10.5 %; Neutrophils # (auto) 3.96 K/uL (1.4-6.5); Neutrophils % (auto) 59.6 %; Platelet Count 166 K/uL (130-400); RDW Coefficient of Variation 13.5 % (11.5-14.5); RDW Standard Deviation 48.8 fL (36.4-46.3); Red Blood Count 3.14 M/uL (4.2-5.4); White Blood Count 6.64 K/uL (4.8-10.8)
--- NOTE | 2021-03-13 12:00 | Hospitalist Progress Note ---
Date of Service March 13, 2021 Assessment & Plan (1) Hip fracture, left: Plan: Secondary to mechanical fall per Dr. Hill's notes: Xray of L hip showed Acute mildly angulated and displaced fracture of the left proximal femur S/P Left hip intramedullary nail fixation of intertrochanteric fracture performed by Dr. Babb on 03/10/21 No post op complication Continue incentive spirometry Continue pain control Continue PT/OT eval-recommend inpatient rehab Not interested to go to inpatient rehab- Refused inpatient rehab Fall precaution 03/13 reporting pain on the distal femur and knee xrays discussed with Ortho- no fractures continue pain control- d/c Oxy due to itching, start Tramadol patient declines transitioning to Acute Rehab despite extensive discussion, she is understanding of risks involved including possible falls, injuries at home UTI UA positive for nitrite Received Rocephin in the ER and Cefazolin today Urine cx: (+) E coli change IV Rocephin to Cefnidir PO Sore throat Soft tissue neck showed Question circumferential wall thickening of the upper esophagus. Correlate clinically for evidence of esophagitis. Protonix 40mg po daily -- will consult GI Hypothyroidism Continue Levothyroxine Alcohol abuse Continue ativan prn Continue thiamine and folic acid -- no signs of alcohol withdrawal Tobacco abuse On nicotine patch Counseling on tobacco cessation sensation Hyperglycemia Hgba1c 5 Continue monitor DVT -- on Lovenox SC Full code Disposition PT recommended inpatient rehab but patient refused and not interested in the idea to go to rehab plan of care discussed with patient in detail and at length all questions answered she is understanding, agreeable, comfortable with the plan of care Admission and Anticipated Discharge Date Admission Date: March 10, 2021 Subjective ff up for s/p hip surgery seen resting in bedside chair, comfortable, not in distress reports pain on the left hip, distal femur and knee when moving still has some sore throat but improving diarrhea improving denies urinary symptoms no fever/chills, headache, dizziness, chest pain, palpitations, nausea/vomiting no other symptoms Review of Systems Review of Systems: all noted and negative except for above Physical Exam Physical Exam: General- oriented x 3, not in distress, speaks in sentences with no effort or accessory muscle use Head- atraumatic Eyes- PERRL, EOMI, anicteric ENT- oropharynx clear Neck- supple, no JVD, no adenopathy, no thyromegaly; carotids +2/2, no bruits appreciated Lungs- clear to auscultation bilaterally, no rales/wheezes Heart- normal rate, regular rhythm; no murmur, no gallop, no rub appreciated Abdomen- normal bowel sounds, nondistended, soft, nontender, no masses or hepatosplenomegaly Extremities- no pretibial edema, no calf tenderness; peripheral pulses intact Left hip: mild edema, dressing in place- no bleeding or discharge left knee: no edema, warmth, tenderness, somewhat painful with ROM Neuro- alert, oriented x 3; CN 2-12 grossly intact; motor 5/5 bilaterally;sensation 100% on all extremities; no other gross focal neurologic deficits Skin- warm & dry Results & Data Results & Data ([facility]) Vital Signs (Past 12 Hours) Vital Signs Temp Pulse Pulse Resp BP Pulse Ox 03/13/21 07:55 37.1 C 83 18 138/80 95 03/13/21 07:51 85 03/13/21 03:22 36.9 C 85 18 134/83 94 03/13/21 00:56 92 H all noted and reviewed including below
[2021-03-13] MEDS ORDERED: traMADol HCL 50 MG TABLET PO PRN (12:47)
[2021-03-13] MEDS: ADVANCED PROBIOTIC 1250 MG CAPSULE PO SCH (13:30)
[2021-03-13] MEDS: KETOROLAC TROMETHAMINE 15 MG/ML VIAL IV PRN (14:46)
--- NOTE | 2021-03-13 14:59 | XRay Report ---
XR knee LT 1 or 2V routine HISTORY: 71 years-old Female knee pain, s/p fall acute left knee pain status post fall COMPARISON: Left femur radiographs of same day TECHNIQUE: 2 views of the left knee FINDINGS: Partially imaged intramedullary geraldo fixating an acute intertrochanteric fracture of the proximal left femur with lateral skin teddy and expected postoperative soft tissue swelling with deep tissue air . Demineralized appearance of the bones. Study is limited secondary to limited field of view to evalu ate the left knee. There is suggestion of mild tricompartmental osteoarthritis without acute fracture , dislocation or opaque foreign body. IMPRESSION: Study is limited secondary to positioning with the knee suboptimally imaged on the AP vie w. Consider a repeat AP image. No acute fracture identified. ACT 112: Negative or not required by law. The above report was generated using voice recognition software. It may contain grammatical, syntax o r spelling errors. Electronically signed by: Hema Grant M.D. 03/13/2021 2:58 PM
--- NOTE | 2021-03-13 15:10 | XRay Report ---
LEFT FEMUR 2 VIEWS CLINICAL HISTORY: Fall. Left leg pain. FINDINGS: AP and crosstable lateral views of the left femur are correlated with radiographs of the le ft hip dated 03/10/2021. The skeletal structures are osteopenic. Again seen is a comminuted intertrocha nteric/subtrochanteric fracture of the left femur status post intertrochanteric and intramedullary na il fixation. There is persistent medial displacement of the lesser trochanter. Skin clips, subcutaneo us gas, and soft tissue edema overlying the left proximal femur are expected postoperative changes. T here is a linear periprosthetic lucency seen along the distal aspect of the arthroplasty extending in feriorly. This may represent a vascular channel. A subtle fracture is not excluded. The distal femur is otherwise intact. The hip and knee joints are grossly maintained. The visualized left hemipelvis a ppears preserved. IMPRESSION: 1. Again seen are expected postoperative changes status post open reduction and internal fixation of a left proximal femoral fracture. 2. Question a vascular channel versus subtle nondisplaced periprosthetic fracture around the distal a spect of the arthroplasty in the femoral shaft. Correlation with a CT scan of the femur is recommende d for further assessment. Electronically signed by: Loyd Dallas M.D. 03/13/2021 3:09 PM
[2021-03-13] MEDS: FLUTICASONE/VILANTEROL 200/25MCG 14 PUFFS/INHALER INH SCH (20:41)
[2021-03-13] MEDS: CEFDINIR 300 MG CAP PO SCH (20:50)
[2021-03-14] MEDS: KETOROLAC TROMETHAMINE 15 MG/ML VIAL IV PRN ×2 (00:04→08:35)
[2021-03-14] MEDS: ACETAMINOPHEN 325 MG TAB PO PRN ×2 (00:04→17:23)
[2021-03-14] MEDS: LEVOTHYROXINE SODIUM 112 MCG TABLET PO SCH (06:07)
[2021-03-14] MEDS: PANTOprazole 40 MG TAB PO SCH (08:03)
[2021-03-14] MEDS: FOLIC ACID 1 MG TAB PO SCH (08:03)
[2021-03-14] MEDS: MULTIVITAMIN TAB PO SCH (08:04)
[2021-03-14] MEDS: CHOLECALCIFEROL 1,000 UNITS 25 MCG TAB PO SCH (08:07)
[2021-03-14] MEDS: THIAMINE HCL 100 MG TAB PO SCH (08:08)
[2021-03-14] MEDS: CEFDINIR 300 MG CAP PO SCH ×2 (08:08→19:53)
[2021-03-14] MEDS: CALCIUM CARBONATE 1250MG TAB PO SCH (08:08)
[2021-03-14] MEDS: ADVANCED PROBIOTIC 1250 MG CAPSULE PO SCH (08:09)
[2021-03-14] MEDS: UMECLIDINIUM BROMIDE 62.5MCG/BLISTER 7 PUFFS/INHALER INH SCH (08:12)
[2021-03-14] MEDS: ENOXAPARIN INJ 40 MG/0.4 ML SYR SQ SCH (08:12)
[2021-03-14] MEDS ORDERED: traMADol HCL 50 MG TABLET PO PRN ×2 (08:35→08:58)
--- NOTE | 2021-03-14 08:52 | Gastrointestinal Consultation ---
Date of Consultation March 14, 2021 Assessment & Plan (1) Esophagitis: 71 year old female admitted w/ fall, hip fracture, reported sore throat, neck CT yesterday showed esophagitits Please start PO PPI 20 mg twice daily Can use carafate slurry QID Recommend NSAIDs cessation Recommend ETOH cessation OP EGD Thank you for allowing us to participate in the care of this patient. Please call with any acute changes, questions or concerns. Please see addendum below with additional recommendation from my supervising physician. Supervising Physician Co-Signing Physician Notes I have seen and examined the patient with CELIA Sharma whose note reflects our findings and plan. Patient with ETOH history admitted with hip fracture after a fall. COmplained of throat pain post op. Primary service ordered a neck CT whih showed ?esophageal thickening. She was not on a PPI and is certainly at risk for reflux esophagitis given ETOH history. Exam is benign. Recommend empiric BID PPI. Once patient recovers from hip fracture can consider outpatient EGD. Needs ETOH cessation History of Present Illness Reason for Consultation: esophagitis Requesting Physician: Manju Attending Physician: Dylan Nunes MD History of Present Illness 71 year old female admitted w/ fall and hip fracture - GI asked to evaluate for esophagitis. Pt was seen and evaluated, chart reviewed. Notes GERD x 10 years. has been on Zantac and PPI intermittent over the past 10 years. Suggests over the past year symptoms have been worsening. Saw PCP who started on PPI and other unspecified medication. Not taking this routinely. She notes epigastric burning, esophageal burning, sore throat, dysphagia to solid. No nausea, vomiting. No change in bowel habits + ETOH + NSAIDs No prior EGD Neck CT 2020: Question circumferential wall thickening of the upper esophagus. Correlate clinically for evidence of esophagitis. If clinically warranted this could be further assessed with endoscopy. Allergies Allergy/AdvReac Type Severity Reaction Status Date / Time oxycodone Allergy Intermediate pruritus Verified 03/13/21 11:52 Horse/Equine Containing Allergy Unknown HORSE Verified 03/11/21 18:13 Products SERUM ALLERGY Home Medications Medication Instructions Recorded Confirmed Type CALCIUM CARBONATE (CALCIUM 600) 600 mg PO DAILY #0 11/07/17 03/10/21 History CHOLECALCIFEROL (D-5000) 5,000 unit PO DAILY #0 11/07/17 03/10/21 History Celecoxib (Celebrex) 100 mg PO BID #0 11/07/17 03/10/21 History FLUTICASONE FUROATE-VILANTEROL 1 puff INHALATION HS #0 11/07/17 03/10/21 History (BREO ELLIPTA) LEVOTHYROXINE SODIUM 112 mcg PO DAILY #0 11/07/17 History Spiriva Respimat 2 puff INHALATION DAILY 03/10/21 03/10/21 History albuterol sulfate 2 puff INHALATION Q4H PRN 03/10/21 03/10/21 History albuterol sulfate mg 03/10/21 History sucralfate 1 gram tablet 1 g PO QID PRN 03/10/21 03/10/21 History Patient History Medical History Hypothyroidism Social History Smoking Status: Current every day smoker Tobacco Type: Cigarettes Cigarettes Per Day: 20; Second Hand Exposure: Yes; Do You Dip or Chew Tobacco: No; Tobacco Cessation Education Requested by Patient: No Hx Alcohol Use: Yes Alcohol type: hard liquor Hx Substance Use: No Preferred Language: Occitan Communication Ability: Effective Workers' Compensation Claims Examiner Required: No Beliefs That Will Affect Care: None Current Living Situation: Alone Other Information That Helps Us Care for You: No Feels Safe at Home: Yes Safety Concerns: Feels Safe At This Time Assistive Devices: Walker Review of Systems Review of Systems: All systems reviewed & are unremarkable except as noted in HPI & below Physical Exam Constitutional: WD/WN, vitals as above Neck: trachea midline, no thyromegaly Respiratory: normal respiratory effort, lungs clear to auscultation Cardiovascular: RRR, no murmur, no edema Gastrointestinal (Abdomen): normal bowel sounds, soft, nontender, no hepatosplenomegaly Skin: no rashes, warm and dry Results & Data ([facility]) Vital Signs (Past 12 Hours) Vital Signs Temp Pulse Pulse Resp BP Pulse Ox 03/14/21 07:49 83 03/14/21 07:00 36.9 C 76 16 131/77 95 03/14/21 03:31 37.2 C 86 18 151/82 H 96 03/14/21 01:35 89 08/04/21 23:56 37.0 C 89 18 151/89 H 96 Laboratory Results 03/13/21 03/13/21 Range/Units 16:55 10:31 WBC 6.64 (4.8-10.8) K/uL RBC 3.14 L (4.2-5.4) M/uL Hgb 10.6 L (12.0-16.0) g/dL Hct 31.1 L (37-47) % MCV 99.0 (80-100) fL MCH 33.8 (25-34) pg MCHC 34.1 (32-36) g/dL RDW Std Deviation 48.8 H (36.4-46.3) fL RDW Coeff of Nighat 13.5 (11.5-14.5) % Plt Count 166 (130-400) K/uL MPV 9.9 (7.4-10.4) fL Immature Gran % (Auto) 0.3 % Neut % (Auto) 59.6 % Lymph % (Auto) 24.7 % Edmunds % (Auto) 10.5 % Eos % (Auto) 4.7 % Baso % (Auto) 0.2 % Neut # (Auto) 3.96 (1.4-6.5) K/uL Lymph # (Auto) 1.64 (1.2-3.4) K/uL Edmunds # (Auto) 0.70 H (0.11-0.59) K/uL Eos # (Auto) 0.31 (0-0.5) K/uL Baso # (Auto) 0.01 (0-0.2) K/uL Immature Gran # (Auto) 0.02 (0.00-0.02) K/uL Stl C. diff Tox B Gene Negative Cdiff Gene (Neg)
[2021-03-14] MEDS: ACETAMINOPHEN 325 MG TAB PO SCH ×4 (09:13→19:53)
[2021-03-14] MEDS: oxyCODONE/ACETAMINOPHEN 5mg/325mg TAB PO PRN ×2 (14:51→20:02)
[2021-03-14] MEDS: SUCRALFATE 1 GM/10 ML UDC PO SCH ×2 (17:24→19:54)
--- NOTE | 2021-03-14 19:23 | Hospitalist Progress Note ---
Date of Service March 14, 2021 Assessment & Plan (1) Hip fracture, left: Plan: Secondary to mechanical fall per Dr. Hill's notes: Xray of L hip showed Acute mildly angulated and displaced fracture of the left proximal femur S/P Left hip intramedullary nail fixation of intertrochanteric fracture performed by Dr. Babb on 03/10/21 No post op complication Continue incentive spirometry Continue pain control Continue PT/OT eval-recommend inpatient rehab Not interested to go to inpatient rehab- Refused inpatient rehab Fall precaution 03/14/2021 Left hip pain improving Patient prefers to resume oxycodone, risks involved including recurrence of itching, possible angioedema, severe allergic reaction explained to patient She is understanding and agreeable and would like to try oxycodone again She has had morphine IV in the past with mild itching but no other severe allergic reaction Oxycodone reordered patient declines transitioning to Acute Rehab despite extensive discussion, she is understanding of risks involved including possible falls, injuries at home UTI, E. coli Urine cx: (+) E coli change IV Rocephin to Cefnidir PO x2 more days Sore throat Soft tissue neck showed Question circumferential wall thickening of the upper esophagus. Correlate clinically for evidence of esophagitis. --GI consulted Recommend Protonix twice daily and sulfate 4 times daily Outpatient EGD Follow-up with GI closely Hypothyroidism Continue Levothyroxine Alcohol abuse Continue ativan prn Continue thiamine and folic acid -- no signs of alcohol withdrawal Tobacco abuse On nicotine patch Counseling on tobacco cessation sensation Hyperglycemia Hgba1c 5 Continue monitor DVT -- on Lovenox SC --Patient prefers NOAC upon discharge for DVT prophylaxis Full code Disposition PT recommended inpatient rehab but patient refused and not interested in the idea to go to rehab plan of care discussed with patient in detail and at length all questions answered she is understanding, agreeable, comfortable with the plan of care CRISTI Downs at the bedside throughout whole encounter Admission and Anticipated Discharge Date Admission Date: March 10, 2021 Subjective Follow-up for status post left hip surgery, etc. Seen resting in bed, comfortable States she feels better today than yesterday Left hip pain more tolerable Denies knee pain Sore throat improving, tolerating diet well Diarrhea improving No headache, dizziness, chest pain, shortness of breath, abdominal pain, nausea vomiting No other symptoms Review of Systems Review of Systems: All reviewed and negative except for above Physical Exam Physical Exam: General- oriented x 3, not in distress, speaks in sentences with no effort or accessory muscle use Eyes- anicteric Neck- no JVD Lungs- clear breath sounds bilaterally, no wheezing no crackles Heart- normal rate, regular rhythm; no murmurs Abdomen- normal bowel sounds, nondistended, soft, nontender Left hip-resting in place, mild edema, no hematoma, no bleeding or discharge Extremities- no pretibial edema, no calf tenderness Neuro- alert, oriented x 3; no gross focal neurologic deficits Skin- warm & dry Results & Data Results & Data ([facility]) Vital Signs (Past 12 Hours) Vital Signs Temp Pulse Pulse Pulse Resp BP Pulse Ox 03/14/21 18:00 37.2 C 83 18 135/75 96 03/14/21 14:58 80 03/14/21 14:50 36.9 C 83 18 137/78 96 03/14/21 11:29 37.0 C 94 H 18 113/65 96 03/14/21 07:49 83 All noted and reviewed, including below
[2021-03-14] MEDS: FLUTICASONE/VILANTEROL 200/25MCG 14 PUFFS/INHALER INH SCH (21:08)
[2021-03-15] MEDS: KETOROLAC TROMETHAMINE 15 MG/ML VIAL IV PRN (00:28)
[2021-03-15] MEDS: ACETAMINOPHEN 325 MG TAB PO SCH ×2 (02:58→08:04)
[2021-03-15] MEDS: LEVOTHYROXINE SODIUM 112 MCG TABLET PO SCH (06:44)
[2021-03-15] MEDS: CHOLECALCIFEROL 1,000 UNITS 25 MCG TAB PO SCH (08:04)
[2021-03-15] MEDS: CEFDINIR 300 MG CAP PO SCH (08:04)
[2021-03-15] MEDS: CALCIUM CARBONATE 1250MG TAB PO SCH (08:04)
[2021-03-15] MEDS: THIAMINE HCL 100 MG TAB PO SCH (08:05)
[2021-03-15] MEDS: PANTOprazole 40 MG TAB PO SCH (08:05)
[2021-03-15] MEDS: ADVANCED PROBIOTIC 1250 MG CAPSULE PO SCH (08:05)
[2021-03-15] MEDS: SUCRALFATE 1 GM/10 ML UDC PO SCH ×2 (08:05→12:53)
[2021-03-15] MEDS: FOLIC ACID 1 MG TAB PO SCH (08:05)
[2021-03-15] MEDS: MULTIVITAMIN TAB PO SCH (08:05)
[2021-03-15] MEDS: UMECLIDINIUM BROMIDE 62.5MCG/BLISTER 7 PUFFS/INHALER INH SCH (08:06)
[2021-03-15] MEDS: ENOXAPARIN INJ 40 MG/0.4 ML SYR SQ SCH (08:09)
--- NOTE | 2021-03-15 09:05 | Pain Management Consultation ---
Date of Consultation March 15, 2021 Assessment & Plan (1) Hip fracture, left: Post operative pain is tolerable with Percocet PO. Do not recommend any changes. She denies any pruritus, throat swelling, or rash. Advised to take Benadryl if she does experience sx. Could also be changed to [place] if allergic symptoms recur. Patient plans to be discharged to home today. History of Present Illness Attending Physician: Dylan Nunes MD History of Present Illness Ms. Hidalgo is a 71 year old female that did fall on 03/10 and fractured her left hip. She did have a left hip replacement by Dr. Babb on 03/10/2021 without complication. She did take 1 oral oxycodone and is reporting some itching so it was discontinued. She was then ordered tramadol 50 mg which she took well to did not find it effective. She did not try the tramadol at 100 mg as it was ordered for short amount of time. She insisted that she would like to try Percocet again as she did find it moderately efficacious towards diminishing her pain. Patient states that her pain is mild at this time. There is more of a tightness sensation in the left hip. She does request to return to home rather than rehab facility as she does have to take care of her 8 cats and 3 of which do require medical attention. Patient denies any constipation, confusion. Pain Assessment Full Body Front + Back: 1. Allergies Allergy/AdvReac Type Severity Reaction Status Date / Time oxycodone Allergy Intermediate pruritus Verified 03/13/21 11:52 Horse/Equine Containing Allergy Unknown HORSE Verified 03/11/21 18:13 Products SERUM ALLERGY Home Medications Medication Instructions Recorded Confirmed Type CALCIUM CARBONATE (CALCIUM 600) 600 mg PO DAILY #0 11/07/17 03/10/21 History CHOLECALCIFEROL (D-5000) 5,000 unit PO DAILY #0 11/07/17 03/10/21 History Celecoxib (Celebrex) 100 mg PO BID #0 11/07/17 03/10/21 History FLUTICASONE FUROATE-VILANTEROL 1 puff INHALATION HS #0 11/07/17 03/10/21 History (BREO ELLIPTA) LEVOTHYROXINE SODIUM 112 mcg PO DAILY #0 11/07/17 History Spiriva Respimat 2 puff INHALATION DAILY 03/10/21 03/10/21 History albuterol sulfate 2 puff INHALATION Q4H PRN 03/10/21 03/10/21 History albuterol sulfate mg 03/10/21 History sucralfate 1 gram tablet 1 g PO QID PRN 03/10/21 03/10/21 History multivitamin (Daily-Luis) 1 tab PO QAM #30 tab 03/15/21 Rx oxycodone-acetaminophen 5 mg-325 1 tab PO Q4H PRN #14 tab 03/15/21 Rx mg tablet (Percocet) pantoprazole 40 mg tablet,delayed 40 mg PO BID #60 tab 03/15/21 Rx release rivaroxaban 10 mg tablet (Xarelto) 10 mg PO DAILY #30 tab 03/15/21 Rx sennosides 8.6 mg-docusate sodium 1 tab-cap PO DAILY #14 tab 03/15/21 Rx 50 mg tablet (Senokot-S) sucralfate 100 mg/mL oral 1 g PO QID 30 Days #1200 ml 03/15/21 Rx suspension Patient History Medical History Hypothyroidism Social History Smoking Status: Current every day smoker Tobacco Type: Cigarettes Cigarettes Per Day: 20; Second Hand Exposure: Yes; Do You Dip or Chew Tobacco: No; Tobacco Cessation Education Requested by Patient: No Hx Alcohol Use: Yes Alcohol type: hard liquor Hx Substance Use: No Preferred Language: Citizen Of [place] Communication Ability: Effective Lab Systems Analyst Required: No Beliefs That Will Affect Care: None Current Living Situation: Alone Other Information That Helps Us Care for You: No Feels Safe at Home: Yes Safety Concerns: Feels Safe At This Time Assistive Devices: Walker Physical Exam Physical Exam: GENERAL: This is a 71 year old female. Does not appear in any acute distress. HEAD/FACE: Normocephalic and atraumatic. EYES: No drainage or conjunctival injection. ENT: Nose without bleeding or discharge. Oral mucosa moist. NECK: Full ROM without apparent pain. No swelling or masses noted. RESPIRATORY: Patient with unlabored breathing. No signs of respiratory distress. CHEST/AXILLA: Chest movement symmetrical. No deformities noted. BACK: Moves without difficulty SKIN: [place], warm and dry. No rash noted. MS/EXTREMITY: No swelling, no deformities. Moving extremities appropriately. NEURO: Alert and appears oriented. Speech is fluent. Cranial Nerves are grossly intact. PSYCH: Alert, pleasant, affect is calm
[2021-03-15] MEDS: oxyCODONE/ACETAMINOPHEN 5mg/325mg TAB PO PRN (09:27)
--- NOTE | 2021-03-15 11:39 | Hospitalist Progress Note ---
Date of Service March 15, 2021 delayed entry date of service noted above Assessment & Plan (1) Hip fracture, left: Plan: Secondary to mechanical fall per Dr. Hill's notes: Xray of L hip showed Acute mildly angulated and displaced fracture of the left proximal femur S/P Left hip intramedullary nail fixation of intertrochanteric fracture performed by Dr. Babb on 03/10/21 No post op complication Continue incentive spirometry Continue pain control Continue PT/OT eval-recommend inpatient rehab Not interested to go to inpatient rehab- Refused inpatient rehab Fall precaution 03/15/2021 stable overall Left hip pain well controlled by Oxycodone, no reactions Xarelto 10mg po daily x 1 month d/c home with home health ff up with Ortho in 1 week UTI, E. coli Urine cx: (+) E coli completed IV Rocephin and Cefdinir x 5 days Sore throat Soft tissue neck showed Question circumferential wall thickening of the upper esophagus. Correlate clinically for evidence of esophagitis. --GI consulted Recommend Protonix twice daily and sulfate 4 times daily Outpatient EGD Follow-up with GI closely Hypothyroidism Continue Levothyroxine Alcohol abuse Continue ativan prn Continue thiamine and folic acid -- no signs of alcohol withdrawal Tobacco abuse On nicotine patch Counseling on tobacco cessation sensation Hyperglycemia Hgba1c 5 DVT -- on Lovenox SC -- Patient prefers NOAC upon discharge for DVT prophylaxis Full code Disposition PT recommended inpatient rehab but patient refused and not interested in the idea to go to rehab plan of care discussed with patient in detail and at length all questions answered she is understanding, agreeable, comfortable with the plan of care CRISTI Downs at the bedside throughout whole encounter Admission and Anticipated Discharge Date Admission Date: March 10, 2021 Subjective ff up for s/p left hip surgery seen resting in bed, comfortable in good spirits states she feels fine overall left hip pain well managed no chest pain, dyspnea, palpitations, dizziness, abdominal pain, nausea/vomiting no other symptoms Review of Systems Review of Systems: all noted and negative except for above Physical Exam Physical Exam: General- oriented x 3, not in distress, speaks in sentences with no effort or accessory muscle use Eyes- anicteric Neck- no JVD Lungs- clear BS BL, no crackles Heart- normal rate, regular rhythm; no murmurs Abdomen- normal bowel sounds, nondistended, soft, nontender Extremities- no pretibial edema, no calf tenderness Left hip: surgical dressing in place- no bleeding or discharge, no hematoma, mild edema, no erythema Neuro- alert, oriented x 3; no gross focal neurologic deficits Skin- warm & dry Results & Data Results & Data ([facility]) Vital Signs (Past 12 Hours) Vital Signs Temp Pulse Pulse Pulse Resp BP Pulse Ox 03/15/21 07:41 37 C 78 16 146/78 H 94 03/15/21 07:36 74 03/15/21 04:25 36.9 C 75 18 130/74 97 03/15/21 00:41 85 all noted and reviewed including below
[2021-03-15] MEDS ORDERED: RIVAROXABAN 10 MG TABLET PO SCH (14:00)
--- NOTE | 2021-03-17 11:03 | Discharge Summary ---
Date of Service March 17, 2021 Admission HPI Per Admitting Provider History obtained from patient and records. Medical history significant for COPD, hypothyroidism, ongoing tobacco abuse. Patient was out on her porch last night when she tripped and fell landing on her left hip. Sharp left hip pain, patient unable to get up. No head trauma, no LOC, no chest pain, no S OB. Patient has been drinking alcohol because of a house alliance party at time of accident. Patient denies alcohol abuse. No prior history of alcohol withdrawal. Patient brought to the ER for evaluation. IV Ceftriaxone given at the ER for possible UTI. Medical History as above Surgical History : BTL, lower eyelid surgery, lumpectomy, tonsillectomy/adenoidectomy, back surgery Family History : Unknown as patient was adopted Personal/Social history : 3/4 pack daily, 3 standard drinks of alcohol per week as per patient usually while playing pool with friends, denies abuse. Retired RN. Baseline Functionality : Still able to do housework at home without rest/exertional chest pain, unusual S OB prior to injury Admission Exam Per Admitting Provider GENERAL: uncomfortable, no respiratory distress, alcoholic fetor, looks younger for stated age SKIN: Normal color, warm HEENT: [place] palpebral conjunctivae, no ptosis, dry buccal mucosa NECK : Supple, no tenderness CHEST : Decreased breath sounds, no tenderness HEART : Tachycardic, no obvious murmurs ABDOMEN: Some distention, nontender EXTREMITIES : No LE swelling, left hip tenderness, no other conspicuous deformities noted NEUROLOGIC : Coherent, no facial asymmetry, no other gross focality Principal Diagnosis Left Hip Fracture s/p Left Hip Surgery Discharge Exam General- oriented x 3, not in distress, speaks in sentences with no effort or accessory muscle use Eyes- anicteric Neck- no JVD Lungs- clear BS BL, no crackles Heart- normal rate, regular rhythm; no murmurs Abdomen- normal bowel sounds, nondistended, soft, nontender Extremities- no pretibial edema, no calf tenderness Left hip: surgical dressing in place- no bleeding or discharge, no hematoma, mild edema, no erythema Neuro- alert, oriented x 3; no gross focal neurologic deficits Skin- warm & dry Discharge Data Allergies Allergy/AdvReac Type Severity Reaction Status Date / Time oxycodone Allergy Intermediate pruritus Verified 03/13/21 11:52 Horse/Equine Containing Allergy Unknown HORSE Verified 03/11/21 18:13 Products SERUM ALLERGY Consultations 03/10/21 04:38 ED Decision to Admit Stat 03/10/21 06:12 Consult Orthopedic Surgery Routine 03/13/21 11:57 Consult Gastroenterology Routine 03/14/21 08:29 Consult Pain Management Routine Procedures Performed Operation Date: 03/10/21 13:30 Actual Procedures p Left Hip Intramedullary Nail(Left) - Andrew Babb MD Ordered Studies 03/10/21 FL hip LT 2-3V Routine 03/10/21 03:22 CT head/brain wo con Urgent FINDINGS: No acute intracranial hemorrhage, midline shift, intracranial mass, hydroc ephalus, territorial ischemia or abnormal extra-axial collection. Senescent calcifications of the lentiform nuclei. The calvarium is intact. The paranasal sinuses, mastoid air cells, and middle ear cavities are clear. IMPRESSION: No acute intracranial abnormality or calvarial fracture. 03/12/21 07:09 CT soft tissue neck w con Urgent FINDINGS: Pharynx: The pharyngeal soft tissues are normal in appearance. The pharyngeal airway is widely patent. There is no evidence of mass lesion. The vocal cords are symmetric. The epiglottis is normal. The parapharyngeal fat is well maintained. The prevertebral/retropharyngeal soft tissues are within normal limits. The esophageal wall appears circumferentially thickened. Lymphadenopathy: No cervical lymphadenopathy is seen Thyroid: Normal in size and attenuation. Salivary glands: The parotid and submandibular glands are within normal limits. Brain parenchyma: The visualized brain parenchyma at the skull base is normal in appearance. Vascular structures: The carotid arteries and jugular veins are patent. Calcified plaque is seen in the carotid bulbs. Skeletal structures: The skeletal structures are osteopenic. Imaged portions of the calvarium at the skull base are within normal limits. The cervical spine appears intact noting multilevel spondylosis. No lytic or blastic lesion is seen. Sinuses and mastoids: The visualized paranasal sinuses are clear. The mastoid air cells are well pneumatized. Lung apices: Visualized apical lung parenchyma is clear. IMPRESSION: 1. The pharyngeal soft tissues are normal as visualized. 2. Question circumferential wall thickening of the upper esophagus. Correlate clinically for evidence of esophagitis. If clinically warranted this could be further assessed with endoscopy. Hospital Course (1) Hip fracture, left: Secondary to mechanical fall per Dr. Hill's notes: Xray of L hip showed Acute mildly angulated and displaced fracture of the left proximal femur S/P Left hip intramedullary nail fixation of intertrochanteric fracture performed by Dr. Babb on 03/10/21 No post op complication stable overall Left hip pain well controlled by Percocet, no reactions Xarelto 10mg po daily x 1 month for DVT prophylaxis (patient declines Lovenox) declines Acute Rehab d/c home with home health ff up with Ortho in 1 week UTI, E. coli Urine cx: (+) E coli no urinary symptoms completed IV Rocephin and Cefdinir x 5 days Sore throat, Esophagitis Soft tissue neck showed Question circumferential wall thickening of the upper esophagus. Correlate clinically for evidence of esophagitis. --GI consulted Recommend Protonix twice daily and sulfate 4 times daily Outpatient EGD Follow-up with GI closely Hypothyroidism Continue Levothyroxine Alcohol abuse -- no signs of alcohol withdrawal Tobacco abuse On nicotine patch Counseling on tobacco cessation sensation Hyperglycemia Hgba1c 5 plan of care discussed with patient in detail and at length all questions answered she is understanding, agreeable, comfortable with the plan of care Total Time Total Time Spent Total Time Spent (In Minutes): > 30 mins Discharge Plan Discharge Items Patient Disposition: Home - Home Health Services Reason For Visit: ELEV BP, HIP FX Discharge Diagnosis: Left hip fracture, status post surgery Activity: As commented below Activity Comment: Always with walker, always be careful with ambulation, continue PT and OT Lifting: Wait until after follow-up appointment Exercise/Sports: Wait until after follow-up appointment Driving/Machine Use: No driving until reevaluated and allowed by primary care physician Weightbearing: Left toe touch Non-emergency contact: Primary Care Provider and Surgeon Call non-emergency contact if: you have any medication questions, your symptoms worsen, your pain is not controlled, your pain is worsening, your pain is unusual for you, your pain is concerning for you, you have a fever, your temperature is above 101.5, your wound has increased redness, your wound has increased drainage and your wound pain has increased Follow-up/Referrals: Andrew Babb MD [Physician] - Marty Scanlon MD [Primary Care Provider] - 03/29/21 11:00 am Diet: Heart Healthy Addtl Attending Provider Instructions: Please review your new medication list and follow instructions carefully. Your new medications include: Percocet- pain medication, as needed; no driving while taking Percocet Senokot-S- stool softener while taking Percocet Protonix and Carafate-antacid for esophagitis Xarelto- to be started on Thursday, March 16, 2021 blood thinner, for blood clot prevention after surgery Do not take medications under the class of NSAIDs like ibuprofen, Advil, Celebrex while taking Xarelto as this may increase your bleeding risk If you sustain any head trauma, proceed to the ER immediately for emergent evaluation If you have signs of bleeding, hold Xarelto and call your primary care physician immediately for advice Call primary care physician or return to the ER immediately if with worsening of symptoms Including pain in the surgical site, fevers or chills, nausea or vomiting, urinary symptoms, bleeding, etc. No alcohol or smoking. Follow-up with orthopedic surgeon Dr. Babb next week. Please call [facility] at [phone] to schedule a follow up appointment. Follow-up with primary care physician Dr. Scanlon as outlined above. Addtl Entertainment & Media Correspondent Provider Instructions: U DISCHARGE INSTRUCTIONS: HIP FRACTURE SELF CARE INSTRUCTIONS: A. You are to ambulate with a walker or crutches for approximately 6 weeks. B. You are TOE TOUCH WEIGHT BEARING on your operative lower extremity for at least 6 weeks. C. Wear low heeled shoes with non-slip soles D. Be sure that your floors are free of things that could trip you throw rugs, electrical cords, and small objects. Avoid wet and waxed floors, especially with crutches/walker/cane. E. Try to walk several times a day with rest periods between. F. You may shower 48 hours after surgery and get the incision area wet, but DO NOT soak or submerge incision area in water. (No baths, swimming pools, hot tubs) G. You may have a large, band-aid like dressing over your incision (Aquacel). This will remain on your incision for 7 days, and then can be removed. You CAN shower with this on. If incision is leaking through the dressing, please call the office . H. Do NOT apply soap or any ointment/lotions directly over incision. I. You may use ice as needed to operative site. SPECIAL CARE INSTRUCTIONS: VERY IMPORTANT TO READ AND REVIEW A. You may be at risk for phlebitis or blood clots. a. Wear surgical stockings (ABDULLAHI hose) for 2 weeks after surgery to improve circulation and reduce swelling. b. Take Xarelto 10 mg p.o. daily for 4 weeks or as directed. This is your blood thinner. . B. There are a few signs you need to watch for after you are home. Call [facility] at [phone] if you experience any of the following: a. If you have a temperature of 101 degrees or higher. b. Sudden increase in pain in your hip not relieved by rest or pain medication. c. Any fluid or drainage from the incision; redness of the incision. d. Shortness of breath or chest pain. C. Call your physician if: a. Temperature is greater than 101 degrees (F). b. Pain is not relieved by prescribed pain medications. c. Increase drainage or redness from incision. d. Unanswered questions or concerns. D. Pain Medication: a. You will be prescribed pain medication upon discharge that should last till your first post-operative appointment. b. If you experience nausea and/or skin rash, discontinue this medication and contact our office for an alternative medication. c. Caution- narcotic pain medication can cause constipation. FOLLOW UP VISIT: Please call [facility] at [phone] to schedule a follow up appointment 10-14 days from the date of your surgery date. Pending Studies at Discharge: No Stand-Alone Forms: My [facility], Smoking Cessation Medications and DC Order Prescriptions: New oxycodone-acetaminophen [Percocet] 5-325 mg Tablet 1 tab PO Q4H PRN (Reason: pain) Qty: 14 RF: 0 pantoprazole 40 mg Tablet,Delayed Release (Dr/Ec) 40 mg PO BID Qty: 60 RF: 1 sucralfate 100 mg/mL Suspension 1 g PO QID 30 Days Qty: 1200 RF: 1 multivitamin [Daily-Luis] Tablet 1 tab PO QAM Qty: 30 RF: 0 sennosides-docusate sodium [Senokot-S] 8.6-50 mg tablet 1 tab-cap PO DAILY Qty: 14 RF: 1 Xarelto 10 mg tablet 10 mg PO DAILY Qty: 30 RF: 0 Continued CALCIUM CARBONATE (CALCIUM 600) 600 MG tablet 600 mg PO DAILY Qty: 0 RF: 0 CHOLECALCIFEROL (D-5000) 5,000 UNIT tablet 5,000 unit PO DAILY Qty: 0 RF: 0 FLUTICASONE FUROATE-VILANTEROL (BREO ELLIPTA) 1 INH inhaler 1 puff Inhalation HS Qty: 0 RF: 0 LEVOTHYROXINE SODIUM 112 MCG tablet 112 mcg PO DAILY Qty: 0 RF: 0 Spiriva Respimat 2 puff inhalation DAILY RF: 0 albuterol sulfate 2.5 mg /3 mL (0.083 %) solution for nebulization RF: 0 albuterol sulfate 2 puff inhalation Q4H PRN (Reason: Bronchospasm) RF: 0 Discontinued Celecoxib (Celebrex) 100 MG capsule 100 mg PO BID Qty: 0 RF: 0 sucralfate 1 gram tablet 1 g PO QID PRN (Reason: Heartburn) RF: 0 Discharge Orders: Discharge Order (Routine); Ordered 03/15/21 Ordered By: Dylan Nunes Admission Data Admit Date/Time: 03/10/21 05:26 Attending Provider: Dylan Nunes Admit Provider: Aristeo Puente Primary Care Provider: Marty Scanlon Other Providers: Oumou Black ; Aristeo Puente ; Valentin Carey ; Yunior Ying ; Leonardo Luis ; Sylvie Holliday Thomas J ; Angelica Peck ; Carlos A Valle ; Andrew Babb ; Jose Daniel Brandt Andrew J. ; Andrew Liriano ; Evgeny Knapp ; Nixon Dia ; Edson Berger ; Pradeep Maldonado ; Angelica Yepez ; Renard Dejesus ; Christopher Jackson ; Va Gibson ; Venkatesh Delong ; Zoe Dunbar ; Marsha Hill ; Madeleine Flores ; Juan Pearl ; [facility] Other Interventions: Discharge Summary Assessment (RN) Last Done: 03/15/21 13:01
== END 2021-03-15 14:45 | disposition home health service (06) | DRG 481 ==
LOC: ED 03:02 → SUATTDRO 05:26 → 2N 05:26